=== PATIENT | female | born 1995 | race Caucasian/White ===

== ENCOUNTER 2023-12-15 13:01 | Emergency (ER) | payer OTHER ==
[2023-12-15 13:29] VITALS: TEMP 98.4
[2023-12-15] MEDS ORDERED: ALBUTEROL NEBULIZED 2.5 MG/3 ML INHALATION STA (13:29)
--- NOTE | 2023-12-15 14:06 | ED ---
General Adult HPI - General Chief complaint: Shortness of Breath Stated complaint: NICKI cough Time Seen by Provider: 12/15/23 13:16 Source: patient Mode of arrival: ambulatory Limitations: no limitations - History of Present Illness Initial comments: Patient is a 28-year-old female presented ER with chief complaint shortness of breath. Patient states last night she started having increasing shortness of breath and pressure sensation in her chest. Patient does have a history of asthma. Patient states when she laid down she felt like an elephant was sitting on her chest. Patient also is endorsing abdominal pain. She is also concerned of STDs and would like to be checked him prophylactically treated. He denies any lightheadedness, dizziness, headache, double or blurred vision, fevers, chills, peripheral edema. - Related Data Previous Rx's Medication Instructions Recorded Ciprofloxacin HCl [Cipro] 500 mg PO Q12HR 5 Days tablet 08/14/15 Albuterol Inhaler [Ventolin Hfa 1 - 2 puff INHALATION Q6H PRN #1 12/15/23 Inhaler] each Allergies Allergy/AdvReac Type Severity Reaction Status Date / Time No Known Allergies Allergy Verified 08/14/15 15:50 Review of Systems ROS Statement: Those systems with pertinent positive or pertinent negative responses have been documented in the HPI. ROS Other: All systems not noted in ROS Statement are negative. Past Medical History Past Medical History: Asthma, GERD/Reflux Additional Past Medical History / Comment(s): IBS History of Any Multi-Drug Resistant Organisms: None Reported Past Surgical History: No Surgical Hx Reported Past Psychological History: Anxiety Smoking Status: Current every day smoker Past Alcohol Use History: Rare Past Drug Use History: Marijuana General Exam Limitations: no limitations General appearance: alert, in no apparent distress Head exam: Present: atraumatic, normocephalic, normal inspection Eye exam: Present: normal appearance, PERRL, EOMI. Absent: scleral icterus, conjunctival injection, periorbital swelling ENT exam: Present: normal exam, normal oropharynx, mucous membranes moist, TM's normal bilaterally Neck exam: Present: normal inspection. Absent: tenderness, meningismus, lymphadenopathy Respiratory exam: Present: wheezes (Mild bilaterally) Cardiovascular Exam: Present: regular rate, normal rhythm, normal heart sounds. Absent: systolic murmur, diastolic murmur, rubs, gallop, clicks GI/Abdominal exam: Present: soft, normal bowel sounds. Absent: distended, tenderness, guarding, rebound, rigid External exam: Present: normal external exam Speculum exam: Present: normal speculum exam, other (mild white thin discharge) Neurological exam: Present: alert, oriented X3, CN II-XII intact Psychiatric exam: Present: normal affect, normal mood Skin exam: Present: warm, dry, intact, normal color. Absent: rash Course Vital Signs 12/15/23 12/15/23 12/15/23 13:06 15:22 15:31 Temperature 98.4 F Pulse Rate 64 57 L 60 Respiratory 16 Rate Blood Pressure 111/86 O2 Sat by Pulse 100 Oximetry - Reevaluation(s) Reevaluation #1: 12/15/23 14:47 Pelvic exam completed. Chaperoned by Lelia Souza RN Medical Decision Making - Medical Decision Making Was pt. sent in by a medical professional or institution (, PA, B[employer] TE[employer] MANAGER, urgent care, hospital, or care home...) When possible be specific @ -No Did you speak to anyone other than the patient for history (EMS, parent, family, police, friend...)? What history was obtained from this source @ -No Did you review nursing and triage notes (agree or disagree)? Why? @ -I reviewed and agree with nursing and triage notes Were old charts reviewed (outside hosp., previous admission, EMS record, old EKG, old radiological studies, urgent care reports/EKG's, care home records)? Report findings @ -No old charts were reviewed Differential Diagnosis (chest pain, altered mental status, abdominal pain women, abdominal pain men, vaginal bleeding, weakness, fever, dyspnea, syncope, headache, dizziness, GI bleed, back pain, seizure, CVA, palpatations, mental health, musculoskeletal)? @ -Differential Dyspnea:Coronary syndrome, arrhythmia, tamponade, asthma, COPD, pulmonary embolism, pneumonia, pneumothorax, pulmonary effusion, anaphylaxis, diabetic ketoacidosis, flailed chest, pulmonary contusion, diaphragmatic r upture, anemia, neuromuscular, this is not meant to be an all-inclusive list. EKG interpreted by me (3pts min.). @ -As above X-rays interpreted by me (1pt min.). @ -Chest x-ray interpreted by me shows no acute process. CT interpreted by me (1pt min.). @ -None done U/S interpreted by me (1pt. min.). @ -None done What testing was considered but not performed or refused? (CT, X-rays, U/S, labs)? Why? @ -None What meds were considered but not given or refused? Why? @ -Patient refused prophylactic STD treatment. Did you discuss the management of the patient with other professionals (professionals i.e. , PA, B[employer] TECH[employer]Y MANAGER, lab, RT, psych nurse, social science manager, middle school resource teacher, teacher, business services officer, case maker)? Give summary @ -No Was smoking cessation discussed for >3mins.? @ -I discussed smoking cessation for greater than 3 minutes. The risk of smoking were discussed with the patient including but not limited to risks of cancer, stroke, coronary artery disease and COPD. Also discussed with patient were multiple methods of quitting smoking. Lastly we discussed the financial cost of smoking. Was critical care preformed (if so, how long)? @ -No Were there social determinants of health that impacted care today? How? (Homelessness, low income, unemployed, alcoholism, drug addiction, transportation, low edu. Level, literacy, decrease access to med. care, senior care, rehab)? @ -No Was there de-escalation of care discussed even if they declined (Discuss DNR or withdrawal of care, Hospice)? DNR status @ -No What co-morbidities impacted this encounter? (DM, HTN, Smoking, COPD, CAD, Cancer, CVA, ARF, Chemo, Hep., AIDS, mental health diagnosis, sleep apnea, morbid obesity)? @ -Smoking, asthma Is patient admitted / discharged? Hospital course, mention meds given and route, prescriptions, significant lab abnormalities, going to OR and other pertinent info. @ -Discharge. Patient is a 28-year-old female presenting to the ER with chief complaint of dyspnea. Patient also is concerned for STD exposure. Vitals stable. History and physical exam were completed. Patient was in no signs of acute respiratory distress. Mild bilateral wheezing present. Patient received nebulized albuterol treatment in ER. Labs obtained in the ER were unimpressive. Covid, rsv, influenza negative. EKG without signs of acute ischemia or infarct. UA without signs of infection. Chest x-ray interpreted by me negative for acute process. Official report pending. Pelvic exam completed and chaperoned by Sherri Souza RN. Results pending. I discussed imaging and lab results with patient. I advised her to continue OTC Tylenol and Motrin for symptoms control. I also suggested she use her inhaler and nebulizer as needed for dyspnea. Prescribed albuterol inhaler. Patient refused prophylactic STD treatment. I discussed smoking cessation for greater than 3 minutes. The risk of smoking were discussed with the patient including but not limited to risks of cancer, stroke, coronary artery disease and COPD. Also discussed with patient were multiple methods of quitting smoking. Lastly we discussed the financial cost of smoking. Return parameters were discussed. I advised patient to follow-up with PCP and [facility]. Patient expressed understanding and agreement with care plan. Undiagnosed new problem with uncertain prognosis? @ -No Drug Therapy requiring intensive monitoring for toxicity (Heparin, Nitro, Insulin, Cardizem)? @ -No Were any procedures done? @ -No Diagnosis/symptom? @ -viral illness/STD exposure Acute, or Chronic, or Acute on Chronic? @ -acute Uncomplicated (without systemic symptoms) or Complicated (systemic symptoms)? @ -uncomplicated Side effects of treatment? @ -No Exacerbation, Progression, or Severe Exacerbation? @ -No Poses a threat to life or bodily function? How? (Chest pain, [place], [place], pneumonia, PE, COPD, DKA, ARF, appy, cholecystitis, CVA, Diverticulitis, Homicidal, Suicidal, threat to staff... and all critical care pts) @ -No - Lab Data Result diagrams: 12/15/23 13:53 12/15/23 13:53 Lab Results 12/15/23 12/15/23 12/15/23 Range/Units 13:53 13:53 13:53 WBC 10.8 H (3.8-10.6) k/uL RBC 4.80 (3.80-5.40) m/uL Hgb 14.5 (11.4-16.0) gm/dL Hct 43.8 (34.0-46.0) % MCV 91.3 (80.0-100.0) fL MCH 30.1 (25.0-35.0) pg MCHC 33.0 (31.0-37.0) g/dL RDW 13.0 (11.5-15.5) % Plt Count 340 (150-450) k/uL MPV 7.9 Sodium 141 (137-145) mmol/L Potassium 4.1 (3.5-5.1) mmol/L Chloride 106 (98-107) mmol/L Carbon Dioxide 25 (22-30) mmol/L Anion Gap 10 mmol/L BUN 15 (7-17) mg/dL Creatinine 0.74 (0.52-1.04) mg/dL Est GFR (CKD-EPI)AfAm >90 (>60 ml/min/1.73 sqM) Est GFR (CKD-EPI)NonAf >90 (>60 ml/min/1.73 sqM) Glucose 83 (74-99) mg/dL Calcium 9.4 (8.4-10.2) mg/dL Total Bilirubin 0.4 (0.2-1.3) mg/dL AST 19 (14-36) U/L ALT 15 (4-34) U/L Alkaline Phosphatase 89 (38-126) U/L Troponin I (0.000-0.034) ng/mL Total Protein 8.1 (6.3-8.2) g/dL Albumin 4.4 (3.5-5.0) g/dL Urine Color Light Yellow Urine Appearance Clear (Clear) Urine pH 5.5 (5.0-8.0) Ur Specific [place] 1.028 (1.001-1.035) Urine Protein Negative (Negative) Urine Glucose (UA) Negative (Negative) Urine Ketones Negative (Negative) Urine Blood Negative (Negative) Urine Nitrite Negative (Negative) Urine Bilirubin Negative (Negative) Urine Urobilinogen <2.0 (<2.0) mg/dL Ur Leukocyte Esterase Small H (Negative) Urine RBC 1 (0-5) /hpf Urine WBC 3 (0-5) /hpf Ur Squamous Epith Cells 5 H (0-4) /hpf Urine Mucus Rare H (None) /hpf Urine HCG, Qual (Not Detectd) Influenza Type A (PCR) (Not Detectd) Influenza Type B (PCR) (Not Detectd) RSV (PCR) (Not Detectd) SARS-CoV-2 (PCR) (Not Detectd) Trichomonas Ag (Rapid) (Negative) 12/15/23 12/15/23 12/15/23 Range/Units 13:53 13:53 13:53 WBC (3.8-10.6) k/uL RBC (3.80-5.40) m/uL Hgb (11.4-16.0) gm/dL Hct (34.0-46.0) % MCV (80.0-100.0) fL MCH (25.0-35.0) pg MCHC (31.0-37.0) g/dL RDW (11.5-15.5) % Plt Count (150-450) k/uL MPV Sodium (137-145) mmol/L Potassium (3.5-5.1) mmol/L Chloride (98-107) mmol/L Carbon Dioxide (22-30) mmol/L Anion Gap mmol/L BUN (7-17) mg/dL Creatinine (0.52-1.04) mg/dL Est GFR (CKD-EPI)AfAm (>60 ml/min/1.73 sqM) Est GFR (CKD-EPI)NonAf (>60 ml/min/1.73 sqM) Glucose (74-99) mg/dL Calcium (8.4-10.2) mg/dL Total Bilirubin (0.2-1.3) mg/dL AST (14-36) U/L ALT (4-34) U/L Alkaline Phosphatase (38-126) U/L Troponin I <0.012 (0.000-0.034) ng/mL Total Protein (6.3-8.2) g/dL Albumin (3.5-5.0) g/dL Urine Color Urine Appearance (Clear) Urine pH (5.0-8.0) Ur Specific [place] (1.001-1.035) Urine Protein (Negative) Urine Glucose (UA) (Negative) Urine Ketones (Negative) Urine Blood (Negative) Urine Nitrite (Negative) Urine Bilirubin (Negative) Urine Urobilinogen (<2.0) mg/dL Ur Leukocyte Esterase (Negative) Urine RBC (0-5) /hpf Urine WBC (0-5) /hpf Ur Squamous Epith Cells (0-4) /hpf Urine Mucus (None) /hpf Urine HCG, Qual Not Detected (Not Detectd) Influenza Type A (PCR) Not Detected (Not Detectd) Influenza Type B (PCR) Not Detected (Not Detectd) RSV (PCR) Not Detected (Not Detectd) SARS-CoV-2 (PCR) Not Detected (Not Detectd) Trichomonas Ag (Rapid) (Negative) 12/15/23 Range/Units 14:40 WBC (3.8-10.6) k/uL RBC (3.80-5.40) m/uL Hgb (11.4-16.0) gm/dL Hct (34.0-46.0) % MCV (80.0-100.0) fL MCH (25.0-35.0) pg MCHC (31.0-37.0) g/dL RDW (11.5-15.5) % Plt Count (150-450) k/uL MPV Sodium (137-145) mmol/L Potassium (3.5-5.1) mmol/L Chloride (98-107) mmol/L Carbon Dioxide (22-30) mmol/L Anion Gap mmol/L BUN (7-17) mg/dL Creatinine (0.52-1.04) mg/dL Est GFR (CKD-EPI)AfAm (>60 ml/min/1.73 sqM) Est GFR (CKD-EPI)NonAf (>60 ml/min/1.73 sqM) Glucose (74-99) mg/dL Calcium (8.4-10.2) mg/dL Total Bilirubin (0.2-1.3) mg/dL AST (14-36) U/L ALT (4-34) U/L Alkaline Phosphatase (38-126) U/L Troponin I (0.000-0.034) ng/mL Total Protein (6.3-8.2) g/dL Albumin (3.5-5.0) g/dL Urine Color Urine Appearance (Clear) Urine pH (5.0-8.0) Ur Specific [place] (1.001-1.035) Urine Protein (Negative) Urine Glucose (UA) (Negative) Urine Ketones (Negative) Urine Blood (Negative) Urine Nitrite (Negative) Urine Bilirubin (Negative) Urine Urobilinogen (<2.0) mg/dL Ur Leukocyte Esterase (Negative) Urine RBC (0-5) /hpf Urine WBC (0-5) /hpf Ur Squamous Epith Cells (0-4) /hpf Urine Mucus (None) /hpf Urine HCG, Qual (Not Detectd) Influenza Type A (PCR) (Not Detectd) Influenza Type B (PCR) (Not Detectd) RSV (PCR) (Not Detectd) SARS-CoV-2 (PCR) (Not Detectd) Trichomonas Ag (Rapid) Negative (Negative) - EKG Data -: EKG Interpreted by Me EKG Comments: EKG taken at 13:59 shows sinus bradycardia with no acute ST segment or T-wave abnormalities present. Ventricular rate 58, AK interval 155, QRS duration 81, QT/QTC 411/407. - Radiology Data Radiology results: image reviewed Disposition Clinical Impression: Viral illness, Exposure to STD Disposition: HOME SELF-CARE Condition: Stable Instructions (If sedation given, give patient instructions): Asthma (ED), Sexually Transmitted Diseases (ED) Additional Instructions: Please follow-up with PCP and [facility] in next 1-2 days. Return to ER for any new or worsening symptoms. Prescriptions: Albuterol Inhaler [Ventolin Hfa Inhaler] 1 - 2 puff INHALATION Q6H PRN #1 each PRN Reason: Shortness Of Breath Is patient prescribed a controlled substance at d/c from ED?: No Referrals: None,Stated [Primary Care Provider] - 1-2 days Time of Disposition: 16:01
[2023-12-15 14:27] LABS: HCT 43.8 % (34.0-46.0); HGB 14.5 gm/dL (11.4-16.0); MCH 30.1 pg (25.0-35.0); MCV 91.3 fL (80.0-100.0); Mean Platelet Volume 7.9; Platelet Count 340 k/uL (150-450); WBC 10.8 k/uL (3.8-10.6)
[2023-12-15 14:37] LABS: Appearance,Urine Clear (Clear); Bilirubin,Urine Negative (Negative); Blood,Urine Negative (Negative); Color,Urine Light Yellow; Glucose,Urine (UA) Negative (Negative); Ketones,Urine Negative (Negative); Leukocyte Esterase,Urine Small (Negative); Mucus,Urine Rare /hpf; Nitrite,Urine Negative (Negative); PH, Urine 5.5 (5.0-8.0); Protein,Urine Negative (Negative); RBC,Urine 1 /hpf (0-5); Specific Gravity,Urine 1.028 (1.001-1.035); Squamous Epithelial Cell,Urine 5 /hpf (0-4); Urobilinogen,Urine <2.0 mg/dL (<2.0); WBC,Urine 3 /hpf (0-5)
[2023-12-15 14:46] LABS: ALT 15 U/L (4-34); AST 19 U/L (14-36); African American GFR (CKD) >90 (>60 ml/min/1.73 sqM); Albumin 4.4 g/dL (3.5-5.0); Alkaline Phosphatase 89 U/L (38-126); Anion Gap 10 mmol/L; Blood Urea Nitrogen 15 mg/dL (7-17); Calcium 9.4 mg/dL (8.4-10.2); Carbon Dioxide 25 mmol/L (22-30); Chloride 106 mmol/L (98-107); Glucose 83 mg/dL (74-99); Non-African American GFR(CKD) >90 (>60 ml/min/1.73 sqM); Potassium 4.1 mmol/L (3.5-5.1); Sodium 141 mmol/L (137-145); Total Bilirubin 0.4 mg/dL (0.2-1.3); Total Protein 8.1 g/dL (6.3-8.2)
[2023-12-15 16:52] VITALS: BP 123/72; PULSE 62; RESP 18
--- NOTE | 2023-12-15 17:04 | XR ---
EXAMINATION TYPE: XR chest 2V DATE OF EXAM: 12/15/2023 3:17 PM CLINICAL INDICATION:Female, 28 years old with history of cough; [facility] COMPARISON: None TECHNIQUE: XR chest 2V. Frontal and lateral views of the chest.. FINDINGS: Lines/Tubes/Devices: No indwelling lines are seen. Heart/mediastinum: Heart size is normal. Mediastinum appears normal. Pulmonary vascularity: Not increased, Lungs/Pleura: There is no evidence of pleural effusion, focal consolidation, or pneumothorax. Musculoskeletal: No acute osseous abnormality demonstrated in the limits of the exam. Other findings: None. IMPRESSION: No acute cardiopulmonary abnormality.
[2023-12-16 14:15] LABS: C. trachomatis,PCR Positive (Negative)
[2023-12-16 14:38] LABS: N. gonorrhoeae,PCR Negative (Negative)
== END 2023-12-15 16:52 | disposition home or self-care (01) ==
LOC: EC 13:01
DX: B34.9 Viral infection, unspecified (principal); Z20.2 Contact with and (suspected) exposure to infections with a predominantly sexual mode of transmission; R00.1 Bradycardia, unspecified; J45.909 Unspecified asthma, uncomplicated; F17.210 Nicotine dependence, cigarettes, uncomplicated; F12.90 Cannabis use, unspecified, uncomplicated; Z20.822 Contact with and (suspected) exposure to COVID-19
CPT/HCPCS: 36415; 71046; 80053; 81001; 81025; 84484; 85027; 86780; 87491; 87591; 87636; 87808; 87901; 93005; 94640; 99285; 99406

== ENCOUNTER 2023-12-29 15:49 | Emergency (ER) | payer OTHER ==
--- NOTE | 2023-12-29 17:01 | ED ---
Back Pain HPI - General Chief Complaint: Back Pain/Injury Stated Complaint: Low back pain Time Seen by Provider: 12/29/23 16:16 Source: patient Limitations: no limitations - History of Present Illness Initial Comments: 28-year-old female presenting to the ED with multiple complaints. Patient states 3 days ago onset of headache with some associated nausea. States that it is inconsistent with her history of headaches and currently states that it is a 10 out of 10 in severity. Patient also notes decreased appetite for the past week as well. Patient states she has a history of chronic back pain notes that today woke up with pain in the middle of her lower back which was worse than usual. No injury or trauma. Denies any incontinence or saddle anesthesia. Patient also notes some congestion and shortness of breath as well. Patient states that she thinks she might be withdrawing from alcohol as she normally drinks 3 seltzers on the weekdays however has a "gallon" of alcohol. on the weekends. Patient notes that she was treated for chlamydia last week and states that she has just finished antibiotics. Patient states she is also having some abdominal pain. Denies vaginal discharge. No changes in bowel or bladder habits. No history of DTs. No other complaints at this time. - Related Data Previous Rx's Medication Instructions Recorded Ciprofloxacin HCl [Cipro] 500 mg PO Q12HR 5 Days tablet 08/14/15 Albuterol Inhaler [Ventolin Hfa 1 - 2 puff INHALATION Q6H PRN #1 12/15/23 Inhaler] each Allergies Allergy/AdvReac Type Severity Reaction Status Date / Time No Known Allergies Allergy Verified 12/29/23 15:59 Review of Systems ROS Statement: Those systems with pertinent positive or pertinent negative responses have been documented in the HPI. ROS Other: All systems not noted in ROS Statement are negative. Past Medical History Past Medical History: Asthma, GERD/Reflux Additional Past Medical History / Comment(s): IBS History of Any Multi-Drug Resistant Organisms: None Reported Past Surgical History: No Surgical Hx Reported Past Psychological History: Anxiety Smoking Status: Current every day smoker Past Alcohol Use History: Rare Past Drug Use History: Marijuana General Exam Limitations: no limitations Course Vital Signs 12/29/23 12/29/23 12/29/23 15:54 17:59 19:01 Temperature 98.3 F Pulse Rate 84 67 84 Respiratory 18 18 18 Rate Blood Pressure 146/66 119/78 101/49 O2 Sat by Pulse 100 94 L 98 Oximetry Medical Decision Making - Medical Decision Making Was pt. sent in by a medical professional or institution (, PA, QUALITY SUPERVISOR, urgent care, hospital, or skilled nursing...) When possible be specific @ -No Did you speak to anyone other than the patient for history (EMS, parent, family, police, friend...)? What history was obtained from this source @ -No Did you review nursing and triage notes (agree or disagree)? Why? @ -I reviewed and agree with nursing and triage notes Were old charts reviewed (outside hosp., previous admission, EMS record, old EKG, old radiological studies, urgent care reports/EKG's, skilled nursing records)? Report findings @ -No old charts were reviewed Differential Diagnosis (chest pain, altered mental status, abdominal pain women, abdominal pain men, vaginal bleeding, weakness, fever, dyspnea, syncope, headache, dizziness, GI bleed, back pain, seizure, CVA, palpatations, mental health, musculoskeletal)? @ -Differential Headache: Migraine, tension, cluster, carbon monoxide, central venous thrombosis, pension karma temporal arteritis, acute closure glaucoma, intercranial hemorrhage, mastoiditis, sinusitis, head injury, this is not meant to be an all-inclusive list. Differential Back Pain: Strain, zoster, cauda equina syndrome, epidural abscess, vertebral os teomyelitis, discitis, fracture, subluxation, disc herniation, DJD, spinal stenosis, dissection, AAA, pancreatitis, peptic ulcer disease, pyelonephritis, kidney stone, this is not meant to be an all-inclusive list. EKG interpreted by me (3pts min.). @ -As above X-rays interpreted by me (1pt min.). @ -X-ray of the lumbar spine and chest interpreted as showing no evidence of acute findings. CT interpreted by me (1pt min.). @ -CT of the brain interpreted me showing no evidence of acute finding. U/S interpreted by me (1pt. min.). @ -None done What testing was considered but not performed or refused? (CT, X-rays, U/S, labs)? Why? @ -None What meds were considered but not given or refused? Why? @ -None Did you discuss the management of the patient with other professionals (professionals i.e. , PA, QUALITY SUPERVISOR, lab, RT, psych nurse, medical social worker, plastics worker, teacher, vessel traffic officer, case folder)? Give summary @ -No Was smoking cessation discussed for >3mins.? @ -No Was critical care preformed (if so, how long)? @ -No Were there social determinants of health that impacted care today? How? (Homelessness, low income, unemployed, alcoholism, drug addiction, transportation, low edu. Level, literacy, decrease access to med. care, custodial, rehab)? @ -No Was there de-escalation of care discussed even if they declined (Discuss DNR or withdrawal of care, Hospice)? DNR status @ -No What co-morbidities impacted this encounter? (DM, HTN, Smoking, COPD, CAD, Cancer, CVA, ARF, Chemo, Hep., AIDS, mental health diagnosis, sleep apnea, m orbid obesity)? @ -None Was patient admitted / discharged? Hospital course, mention meds given and route, prescriptions, significant lab abnormalities, going to OR and other pertinent info. @ -Discharge 28-year-old female presenting with multiple complaints, primarily headache, nausea, vomiting, and back pain. Laboratory studies reviewed. At this time white blood cell count is elevated at 11.4 however patient does note that she has had some nausea and vomiting over the past few days. D-dimer here negative. Coagulation panel unremarkable. Chemistry panel does show an elevated BUN at 21 likely some slight dehydration, otherwise unremarkable. Amylase lipase unre markable. Troponin less than 0.012. UA has no significant evidence of infection. Toxicology screen only positive for THC which patient does admit to using. No other drugs found on here. Serology panel unremarkable. Discussed results with patient. At this time has received Toradol, Tylenol, magnesium, diphenhydramine. Offered steroids however patient would not like to have any of these at this time. Otherwise vital signs at this time stable afebrile. Patient discharged home in stable condition and advised to follow-up with her primary care provider. Discussed return precautions with patient who verbalized agreement. Undiagnosed new problem with uncertain prognosis? @ -No Drug Therapy requiring intensive monitoring for toxicity (Heparin, Nitro, Insulin, Cardizem)? @ -No Were any procedures done? @ -No Diagnosis/symptom? @ -Headache, back pain Acute, or Chronic, or Acute on Chronic? @ -Acute Uncomplicated (without systemic symptoms) or Complicated (systemic symptoms)? @ -Uncomplicated Side effects of treatment? @ -No Exacerbation, Progression, or Severe Exacerbation? @ -No Poses a threat to life or bodily function? How? (Chest pain, [place], ME, pneumonia, PE, COPD, DKA, ARF, appy, cholecystitis, CVA, Diverticulitis, Homicidal, Suicidal, threat to staff... and all critical care pts) @ -No - Lab Data Result diagrams: 12/29/23 17:24 12/29/23 17:24 Lab Results 12/29/23 12/29/23 12/29/23 Range/Units 16:42 17:24 17:24 WBC 11.4 H (3.8-10.6) k/uL RBC 4.96 (3.80-5.40) m/uL Hgb 15.0 (11.4-16.0) gm/dL Hct 45.1 (34.0-46.0) % MCV 90.9 (80.0-100.0) fL MCH 30.1 (25.0-35.0) pg MCHC 33.2 (31.0-37.0) g/dL RDW 13.2 (11.5-15.5) % Plt Count 300 (150-450) k/uL MPV 7.8 Neutrophils % 58 % Lymphocytes % 35 % Monocytes % 3 % Eosinophils % 2 % Basophils % 1 % Neutrophils # 6.6 (1.3-7.7) k/uL Lymphocytes # 4.0 (1.0-4.8) k/uL Monocytes # 0.3 (0-1.0) k/uL Eosinophils # 0.2 (0-0.7) k/uL Basophils # 0.1 (0-0.2) k/uL PT 10.9 (10.0-12.5) sec INR 1.0 (<1.2) APTT 26.7 (22.0-30.0) sec D-Dimer 0.30 (<0.60) mg/L FEU Sodium (137-145) mmol/L Potassium (3.5-5.1) mmol/L Chloride (98-107) mmol/L Carbon Dioxide (22-30) mmol/L Anion Gap mmol/L BUN (7-17) mg/dL Creatinine (0.52-1.04) mg/dL Est GFR (CKD-EPI)AfAm (>60 ml/min/1.73 sqM) Est GFR (CKD-EPI)NonAf (>60 ml/min/1.73 sqM) Glucose (74-99) mg/dL Calcium (8.4-10.2) mg/dL Magnesium (1.6-2.3) mg/dL Total Bilirubin (0.2-1.3) mg/dL AST (14-36) U/L ALT (4-34) U/L Alkaline Phosphatase (38-126) U/L Troponin I (0.000-0.034) ng/mL Total Protein (6.3-8.2) g/dL Albumin (3.5-5.0) g/dL Amylase (30-110) U/L Lipase (23-300) U/L Urine Color Urine Appearance (Clear) Urine pH (5.0-8.0) Ur Specific [place] (1.001-1.035) Urine Protein (Negative) Urine Glucose (UA) (Negative) Urine Ketones (Negative) Urine Blood (Negative) Urine Nitrite (Negative) Urine Bilirubin (Negative) Urine Urobilinogen (<2.0) mg/dL Ur Leukocyte Esterase (Negative) Urine RBC (0-5) /hpf Urine WBC (0-5) /hpf Ur Squamous Epith Cells (0-4) /hpf Urine Mucus (None) /hpf Urine HCG, Qual (Not Detectd) Urine Opiates Screen (NotDetected) Ur Oxycodone Screen (NotDetected) Urine Methadone Screen (NotDetected) Ur Barbiturates Screen (NotDetected) U Tricyclic Antidepress (NotDetected) Ur Phencyclidine Scrn (NotDetected) Ur Amphetamines Screen (NotDetected) U Methamphetamines Scrn (NotDetected) U Benzodiazepines Scrn (NotDetected) Urine Cocaine Screen (NotDetected) U Marijuana (THC) Screen (NotDetected) Serum Alcohol mg/dL Influenza Type A (PCR) Not Detected (Not Detectd) Influenza Type B (PCR) Not Detected (Not Detectd) RSV (PCR) Not Detected (Not Detectd) SARS-CoV-2 (PCR) Not Detected (Not Detectd) 12/29/23 12/29/23 12/29/23 Range/Units 17:24 17:24 17:24 WBC (3.8-10.6) k/uL RBC (3.80-5.40) m/uL Hgb (11.4-16.0) gm/dL Hct (34.0-46.0) % MCV (80.0-100.0) fL MCH (25.0-35.0) pg MCHC (31.0-37.0) g/dL RDW (11.5-15.5) % Plt Count (150-450) k/uL MPV Neutrophils % % Lymphocytes % % Monocytes % % Eosinophils % % Basophils % % Neutrophils # (1.3-7.7) k/uL Lymphocytes # (1.0-4.8) k/uL Monocytes # (0-1.0) k/uL Eosinophils # (0-0.7) k/uL Basophils # (0-0.2) k/uL PT (10.0-12.5) sec INR (<1.2) APTT (22.0-30.0) sec D-Dimer (<0.60) mg/L FEU Sodium 139 (137-145) mmol/L Potassium 4.1 (3.5-5.1) mmol/L Chloride 105 (98-107) mmol/L Carbon Dioxide 23 (22-30) mmol/L Anion Gap 11 mmol/L BUN 21 H (7-17) mg/dL Creatinine 0.77 (0.52-1.04) mg/dL Est GFR (CKD-EPI)AfAm >90 (>60 ml/min/1.73 sqM) Est GFR (CKD-EPI)NonAf >90 (>60 ml/min/1.73 sqM) Glucose 74 (74-99) mg/dL Calcium 9.5 (8.4-10.2) mg/dL Magnesium 1.8 (1.6-2.3) mg/dL Total Bilirubin 0.9 (0.2-1.3) mg/dL AST 26 (14-36) U/L ALT 21 (4-34) U/L Alkaline Phosphatase 90 (38-126) U/L Troponin I <0.012 (0.000-0.034) ng/mL Total Protein 8.1 (6.3-8.2) g/dL Albumin 4.5 (3.5-5.0) g/dL Amylase 54 (30-110) U/L Lipase 49 (23-300) U/L Urine Color Yellow Urine Appearance Cloudy H (Clear) Urine pH 5.5 (5.0-8.0) Ur Specific [place] 1.042 H (1.001-1.035) Urine Protein Trace H (Negative) Urine Glucose (UA) Negative (Negative) Urine Ketones 1+ H (Negative) Urine Blood Negative (Negative) Urine Nitrite Negative (Negative) Urine Bilirubin Negative (Negative) Urine Urobilinogen <2.0 (<2.0) mg/dL Ur Leukocyte Esterase Moderate H (Negative) Urine RBC 2 (0-5) /hpf Urine WBC 7 H (0-5) /hpf Ur Squamous Epith Cells 10 H (0-4) /hpf Urine Mucus Few H (None) /hpf Urine HCG, Qual (Not Detectd) Urine Opiates Screen (NotDetected) Ur Oxycodone Screen (NotDetected) Urine Methadone Screen (NotDetected) Ur Barbiturates Screen (NotDetected) U Tricyclic Antidepress (NotDetected) Ur Phencyclidine Scrn (NotDetected) Ur Amphetamines Screen (NotDetected) U Methamphetamines Scrn (NotDetected) U Benzodiazepines Scrn (NotDetected) Urine Cocaine Screen (NotDetected) U Marijuana (THC) Screen (NotDetected) Serum Alcohol <10 mg/dL Influenza Type A (PCR) (Not Detectd) Influenza Type B (PCR) (Not Detectd) RSV (PCR) (Not Detectd) SARS-CoV-2 (PCR) (Not Detectd) 12/29/23 12/29/23 Range/Units 17:24 17:24 WBC (3.8-10.6) k/uL RBC (3.80-5.40) m/uL Hgb (11.4-16.0) gm/dL Hct (34.0-46.0) % MCV (80.0-100.0) fL MCH (25.0-35.0) pg MCHC (31.0-37.0) g/dL RDW (11.5-15.5) % Plt Count (150-450) k/uL MPV Neutrophils % % Lymphocytes % % Monocytes % % Eosinophils % % Basophils % % Neutrophils # (1.3-7.7) k/uL Lymphocytes # (1.0-4.8) k/uL Monocytes # (0-1.0) k/uL Eosinophils # (0-0.7) k/uL Basophils # (0-0.2) k/uL PT (10.0-12.5) sec INR (<1.2) APTT (22.0-30.0) sec D-Dimer (<0.60) mg/L FEU Sodium (137-145) mmol/L Potassium (3.5-5.1) mmol/L Chloride (98-107) mmol/L Carbon Dioxide (22-30) mmol/L Anion Gap mmol/L BUN (7-17) mg/dL Creatinine (0.52-1.04) mg/dL Est GFR (CKD-EPI)AfAm (>60 ml/min/1.73 sqM) Est GFR (CKD-EPI)NonAf (>60 ml/min/1.73 sqM) Glucose (74-99) mg/dL Calcium (8.4-10.2) mg/dL Magnesium (1.6-2.3) mg/dL Total Bilirubin (0.2-1.3) mg/dL AST (14-36) U/L ALT (4-34) U/L Alkaline Phosphatase (38-126) U/L Troponin I (0.000-0.034) ng/mL Total Protein (6.3-8.2) g/dL Albumin (3.5-5.0) g/dL Amylase (30-110) U/L Lipase (23-300) U/L Urine Color Urine Appearance (Clear) Urine pH (5.0-8.0) Ur Specific [place] (1.001-1.035) Urine Protein (Negative) Urine Glucose (UA) (Negative) Urine Ketones (Negative) Urine Blood (Negative) Urine Nitrite (Negative) Urine Bilirubin (Negative) Urine Urobilinogen (<2.0) mg/dL Ur Leukocyte Esterase (Negative) Urine RBC (0-5) /hpf Urine WBC (0-5) /hpf Ur Squamous Epith Cells (0-4) /hpf Urine Mucus (None) /hpf Urine HCG, Qual Not Detected (Not Detectd) Urine Opiates Screen Not Detected (NotDetected) Ur Oxycodone Screen Not Detected (NotDetected) Urine Methadone Screen Not Detected (NotDetected) Ur Barbiturates Screen Not Detected (NotDetected) U Tricyclic Antidepress Not Detected (NotDetected) Ur Phencyclidine Scrn Not Detected (NotDetected) Ur Amphetamines Screen Not Detected (NotDetected) U Methamphetamines Scrn Not Detected (NotDetected) U Benzodiazepines Scrn Not Detected (NotDetected) Urine Cocaine Screen Not Detected (NotDetected) U Marijuana (THC) Screen Detected H (NotDetected) Serum Alcohol mg/dL Influenza Type A (PCR) (Not Detectd) Influenza Type B (PCR) (Not Detectd) RSV (PCR) (Not Detectd) SARS-CoV-2 (PCR) (Not Detectd) - EKG Data EKG Comments: EKG shows a normal sinus rhythm at [address] or T wave changes. [place] 152, QRS 90, QT/QTc 389/399. Disposition Clinical Impression: Headache, Back pain Disposition: HOME SELF-CARE Condition: Good Additional Instructions: Please return to the Emergency Department if symptoms worsen or any other concerns. Please follow-up with your primary care provider Is patient prescribed a controlled substance at d/c from ED?: No Referrals: None,Stated [Primary Care Provider] - 1-2 days Time of Disposition: 20:31
[2023-12-29] MEDS ORDERED: ONDANSETRON 4 MG/2 ML VIAL IVP STA (17:03)
[2023-12-29] MEDS ORDERED: SODIUM CHLORIDE 0.9% 500 ML 500 ML IV STA (17:03)
[2023-12-29] MEDS ORDERED: KETOROLAC 15 MG/ML 1 ML VIAL IVP STA (17:04)
--- NOTE | 2023-12-29 18:18 | CT ---
EXAMINATION TYPE: CT brain wo con CT DLP: 1052 mGycm, Automated exposure control for dose reduction was used. DATE OF EXAM: 12/29/2023 6:10 PM COMPARISON: None. CLINICAL INDICATION:Female, 28 years old with history of LIVE, headache TECHNIQUE: Brain: Axial CT images of the brain were obtained with coronal and sagittal reformats created and rev iewed. Contrast used: None. Oral contrast used: None. FINDINGS: Extra-axial spaces: No abnormal extra-axial fluid collections. Ventricular system: Within normal limits. Cerebral parenchyma: No increased attenuation to suggest acute intraparenchymal hemorrhage. The gra y-white matter interface appears maintained. No significant atrophy. White matter unremarkable by C T. Cerebellum: No acute abnormality. Mass effect: No evidence of mass effect or midline shift. Intracranial vasculature: Unremarkable Soft tissues: No acute or concerning abnormality. Visualized orbits: Orbital contents appear grossly intact. Calvarium/osseous structures: No evidence of calvarial fracture. Paranasal sinuses and mastoid air cells: Clear. MRI is more sensitive for detecting acute processes such as infarct, and may be considered if clinica lly warranted. IMPRESSION: No acute intracranial CT abnormality.
[2023-12-29 18:21] LABS: Appearance,Urine Cloudy (Clear); Bilirubin,Urine Negative (Negative); Blood,Urine Negative (Negative); Color,Urine Yellow; Glucose,Urine (UA) Negative (Negative); Ketones,Urine 1+ (Negative); Leukocyte Esterase,Urine Moderate (Negative); Mucus,Urine Few /hpf; Nitrite,Urine Negative (Negative); PH, Urine 5.5 (5.0-8.0); Protein,Urine Trace (Negative); RBC,Urine 2 /hpf (0-5); Specific Gravity,Urine 1.042 (1.001-1.035); Squamous Epithelial Cell,Urine 10 /hpf (0-4); Urobilinogen,Urine <2.0 mg/dL (<2.0); WBC,Urine 7 /hpf (0-5)
--- NOTE | 2023-12-29 18:23 | XR ---
EXAMINATION TYPE: XR chest 2V DATE OF EXAM: 12/29/2023 6:17 PM CLINICAL INDICATION:Female, 28 years old with history of dyspnea; [facility] COMPARISON: 12/15/2023 TECHNIQUE: XR chest 2V. Frontal and lateral views of the chest.. FINDINGS: Lines/Tubes/Devices: No indwelling lines are seen. Heart/mediastinum: Heart size is normal. Mediastinum appears normal. Pulmonary vascularity: Not increased, Lungs/Pleura: Hazy opacity over the lung bases on the frontal view likely from overlying soft tissue attenuation. There is no evidence of pleural effusion, focal consolidation, or pneumothorax. Musculoskeletal: No acute osseous abnormality demonstrated in the limits of the exam. Other findings: None. IMPRESSION: No acute findings, or significant interval change.
[2023-12-29] MEDS ORDERED: diphenhydrAMINE 50 MG/ML 1 ML VIAL IVP STA (18:26)
--- NOTE | 2023-12-29 18:33 | XR ---
EXAMINATION TYPE: XR lumbar spine 2 or 3V DATE OF EXAM: 12/29/2023 6:17 PM CLINICAL INDICATION:Female, 28 years old with history of pain; [facility] COMPARISON: None TECHNIQUE: XR lumbar spine 2 or 3V - Frontal, lateral and coned down L5-S1 lateral views of the lumba r spine. FINDINGS: There are 5 lumbar-type vertebral bodies. Mineralization appears within normal limits. No osseous constance tructive process seen. Vertebral body heights and disc spacing are preserved. There is normal alignme nt of the lumbar vertebral bodies. No significant degenerative changes throughout the spine. Scattered intermediate radiodensities in the abdomen appear to represent stool contents in the colon. Otherwise unremarkable soft tissues. IMPRESSION: No radiographic evidence of acute compression fracture.
[2023-12-29 18:59] LABS: Basophils # (A) 0.1 k/uL (0-0.2); Basophils % (A) 1 %; Eosinophils # (A) 0.2 k/uL (0-0.7); Eosinophils % (A) 2 %; HCT 45.1 % (34.0-46.0); Lymphocytes % (A) 35 %; MCH 30.1 pg (25.0-35.0); MCHC 33.2 g/dL (31.0-37.0); MCV 90.9 fL (80.0-100.0); Mean Platelet Volume 7.8; Monocytes # (A) 0.3 k/uL (0-1.0); Monocytes % (A) 3 %; Neutrophils # (A) 6.6 k/uL (1.3-7.7); Neutrophils % (A) 58 %; Platelet Count 300 k/uL (150-450); RBC 4.96 m/uL (3.80-5.40); RDW 13.2 % (11.5-15.5); WBC 11.4 k/uL (3.8-10.6)
[2023-12-29 19:09] LABS: ALT 21 U/L (4-34); AST 26 U/L (14-36); African American GFR (CKD) >90 (>60 ml/min/1.73 sqM); Albumin 4.5 g/dL (3.5-5.0); Alcohol <10 mg/dL; Alkaline Phosphatase 90 U/L (38-126); Amylase 54 U/L (30-110); Anion Gap 11 mmol/L; Blood Urea Nitrogen 21 mg/dL (7-17); Calcium 9.5 mg/dL (8.4-10.2); Carbon Dioxide 23 mmol/L (22-30); Chloride 105 mmol/L (98-107); Glucose 74 mg/dL (74-99); Lipase 49 U/L (23-300); Magnesium 1.8 mg/dL (1.6-2.3); Non-African American GFR(CKD) >90 (>60 ml/min/1.73 sqM); Potassium 4.1 mmol/L (3.5-5.1); Sodium 139 mmol/L (137-145); Total Bilirubin 0.9 mg/dL (0.2-1.3); Total Protein 8.1 g/dL (6.3-8.2)
[2023-12-29 19:15] LABS: Partial Thromboplastin Time 26.7 sec (22.0-30.0); Prothrombin Time 10.9 sec (10.0-12.5)
[2023-12-29] MEDS ORDERED: MAGNESIUM OXIDE 400 MG TAB PO STA (19:31)
[2023-12-29 19:57] LABS: Amphetamine Screen,Urine Not Detected (NotDetected); Barbiturate Screen,Urine Not Detected (NotDetected); Benzodiazepines Screen,Urine Not Detected (NotDetected); Cocaine Screen,Urine Not Detected (NotDetected); Methadone Screen, Urine Not Detected (NotDetected); Opiate Screen,Urine Not Detected (NotDetected); Oxycodone Screen, Urine Not Detected (NotDetected); Phencyclidine Screen,Urine Not Detected (NotDetected); Tricyclic Antidepressant,Urine Not Detected (NotDetected); Urn Cannabinoid Scrn Detected (NotDetected)
[2023-12-29 20:53] VITALS: BP 104/64; PULSE 69; RESP 12; TEMP 98
== END 2023-12-29 20:45 | disposition home or self-care (01) ==
LOC: EC 15:49
DX: M54.9 Dorsalgia, unspecified (principal); R51.9 Headache, unspecified; J45.909 Unspecified asthma, uncomplicated; F17.200 Nicotine dependence, unspecified, uncomplicated; F12.90 Cannabis use, unspecified, uncomplicated; Z86.59 Personal history of other mental and behavioral disorders; Z20.822 Contact with and (suspected) exposure to COVID-19
CPT/HCPCS: 99285; 96374; 96375; 96361 ×2; 36415; 93005; 85379; 80053; 82150; 83690; 83735; 84484; 85025; 85610; 85730; 81001; 81025; 80306; 87636; 72100; 71046; 70450; G0480; J1200; J1885; 80320

== ENCOUNTER 2024-10-08 10:57 | Inpatient (IN) | payer MEDICAID, OTHER ==
--- NOTE | 2024-10-08 11:42 | ED ---
Psych HPI - General Chief Complaint: Psychiatric Symptoms Stated Complaint: mental health Time Seen by Provider: 10/08/24 11:14 Source: patient, EMS, RN notes reviewed Mode of arrival: EMS Limitations: no limitations - History of Present Illness Initial Comments: This is a 29-year-old female with psychiatric history including BPD presenting for attempted medication overdose this morning. Patient states she took around 15 tablets of 100 mg trazodone this morning one after another before calling EMS when she grew fearful. Patient states she feels more tired than usual with associated nausea and vomiting but otherwise denies any other symptoms. Denies use or attempted overdose with any other medications. Patient states this is her first attempt at suicide using pills/drugs. Patient endorses past attempt of choking herself during elementary school and strong consider duration of walking into traffic in 2021 but was stopped before she attempted. Patient states she sees a therapist twice monthly but does not take psychiatric medication due to her BPD according to her. Patient states her next therapist appointment is on October 14. Endorses marijuana use, having run out 3 days ago. Patient states she is "overwhelmed" with life. MD Complaint: suicidal ideation, feels depressed Onset/Timin -: hour(s) Associated Psychiatric Symptoms: depression, suicidal ideation Context: recent drug abuse, not taking psychiatric medications, significant life stressor Associated Symptoms: nausea, vomiting Treatments Prior to Arrival: none If Self Harm: admits thoughts of self harm, has acted on plan, intentional overdose - Related Data Home Medications Medication Instructions Recorded Confirmed traZODone HCL [Desyrel] 100 mg PO HS PRN 10/08/24 10/08/24 Allergies Allergy/AdvReac Type Severity Reaction Status Date / Time No Known Allergies Allergy Verified 10/08/24 12:39 Review of Systems ROS Statement: Those systems with pertinent positive or pertinent negative responses have been documented in the HPI. ROS Other: All systems not noted in ROS Statement are negative. Past Medical History Past Medical History: Asthma, GERD/Reflux Additional Past Medical History / Comment(s): IBS History of Any Multi-Drug Resistant Organisms: None Reported Past Surgical History: No Surgical Hx Reported Past Psychological History: Anxiety Smoking Status: Current every day smoker Past Alcohol Use History: Rare Past Drug Use History: Marijuana General Exam Limitations: no limitations General appearance: alert, in no apparent distress, lethargic Head exam: Present: atraumatic, normocephalic, normal inspection Eye exam: Present: normal appearance, PERRL, EOMI. Absent: scleral icterus, conjunctival injection, periorbital swelling Pupils: Present: other (Slow accommodation but equal) ENT exam: Present: normal exam, mucous membranes moist Neck exam: Present: normal inspection. Absent: tenderness, meningismus, lymphadenopathy Respiratory exam: Present: normal lung sounds bilaterally. Absent: respiratory distress, wheezes, rales, rhonchi, stridor Cardiovascular Exam: Present: regular rate, normal rhythm, normal heart sounds. Absent: systolic murmur, diastolic murmur, rubs, gallop, clicks GI/Abdominal exam: Present: soft, normal bowel sounds. Absent: distended, tenderness, guarding, rebound, rigid Extremities exam: Present: normal inspection, full ROM, normal capillary refill. Absent: tenderness, pedal edema, joint swelling, calf tenderness Back exam: Present: normal inspection Neurological exam: Present: alert, oriented X3, CN II-XII intact Psychiatric exam: Present: normal affect, normal mood Skin exam: Present: warm, dry, intact, normal color. Absent: rash Course Vital Signs 10/08/24 10/08/24 11:04 18:44 Temperature 98.2 F Pulse Rate 78 82 Respiratory 12 18 Rate Blood Pressure 104/70 110/70 O2 Sat by Pulse 95 96 Oximetry Medical Decision Making - Medical Decision Making Was pt. sent in by a medical professional or institution (, PA, NATIONAL STORMWATER LEADER, urgent care, hospital, or longterm...) When possible be specific @ -No Did you speak to anyone other than the patient for history (EMS, parent, family, police, friend...)? What history was obtained from this source @ -No Did you review nursing and triage notes (agree or disagree)? Why? @ -I reviewed and agree with nursing and triage notes Were old charts reviewed (outside hosp., previous admission, EMS record, old EKG, old radiological studies, urgent care reports/EKG's, longterm records)? Report findings @ -No old charts were reviewed Differential Diagnosis (chest pain, altered mental status, abdominal pain women, abdominal pain men, vaginal bleeding, weakness, fever, dyspnea, syncope, headache, dizziness, GI bleed, back pain, seizure, CVA, palpatations, mental health, musculoskeletal)? @ -Differential Altered Mental Status: Hypoglycemia, DKA, hypercapnia, ETOH, overdose, CO poisoning, trauma, myxedema coma, HTN encephalopathy, infection, encephalitis, psychosis, intercranial he morrhage, hepatic encephalopathy, meningitis, CVA, this is not meant to be an all-inclusive list EKG interpreted by me (3pts min.). @ -Sinus rhythm without ST changes or T wave inversion. Ventricular rate 72 bpm, YAYA 130 ms, QRS duration 77 ms, QTc 418 ms. X-rays interpreted by me (1pt min.). @ -None done CT interpreted by me (1pt min.). @ -None done U/S interpreted by me (1pt. min.). @ -None done What testing was considered but not performed or refused? (CT, X-rays, U/S, labs)? Why? @ -None What meds were considered but not given or refused? Why? @ -None Did you discuss the management of the patient with other professionals (professionals i.e. , PA, N[employer] ST[employer] LEADER, lab, RT, psych nurse, licensed clinical social worker, head of digital advertising & integration, teacher, aoc director combat operations officer, therapeutic case manager)? Give summary @ -No Was smoking cessation discussed for >3mins.? @ -No Was critical care preformed (if so, how long)? @ -No Were there social determinants of health that impacted care today? How? (Homelessness, low income, unemployed, alcoholism, drug addiction, transportation, low edu. Level, literacy, decrease access to med. care, [facility], rehab)? @ -No Was there de-escalation of care discussed even if they declined (Discuss DNR or withdrawal of care, Hospice)? DNR status @ -No What co-morbidities impacted this encounter? (DM, HTN, Smoking, COPD, CAD, Cancer, CVA, ARF, Chemo, Hep., AIDS, mental health diagnosis, sleep apnea, morbid obesity)? @ -Mental health diagnosis, BPD Was patient admitted / discharged? Hospital course, mention meds given and route, prescriptions, significant lab abnormalities, going to OR and other pertinent info. @ -Admitted. Drug screen positive for marijuana use but otherwise unremarkable. Salicylate and acetaminophen were negative. Research performed regarding trazodone and common effects as well as morbidity and mortality rates. Due to patient being A&O x 4 and GCS of 15, poison control was not contacted and patient was observed instead. Decision made to admit patient due to overdose attempt and for further observation. Undiagnosed new problem with uncertain prognosis? @ -No Drug Therapy requiring intensive monitoring for toxicity (Heparin, Nitro, Insulin, Cardizem)? @ -No Were any procedures done? @ -No Diagnosis/symptom? @ -Intentional prescription drug overdose Acute, or Chronic, or Acute on Chronic? @ -Acute Uncomplicated (without systemic symptoms) or Complicated (systemic symptoms)? @ -Complicated Side effects of treatment? @ -No Exacerbation, Progression, or Severe Exacerbation? @ -No Poses a threat to life or bodily function? How? (Chest pain, USA, ND, pneumonia, PE, COPD, DKA, ARF, appy, cholecystitis, CVA, Diverticulitis, Homicidal, Suicidal, threat to staff... and all critical care pts) @ -Suicidal, drug overdose - Lab Data Result diagrams: 10/08/24 12:11 10/08/24 12:11 Lab Results 10/08/24 10/08/24 10/08/24 Range/Units 11:12 12:11 12:11 WBC 8.9 (3.8-10.6) k/uL RBC 4.92 (3.80-5.40) m/uL Hgb 14.7 (11.4-16.0) gm/dL Hct 44.9 (34.0-46.0) % MCV 91.1 (80.0-100.0) fL MCH 29.9 (25.0-35.0) pg MCHC 32.8 (31.0-37.0) g/dL RDW 12.7 (11.5-15.5) % Plt Count 273 (150-450) k/uL MPV 7.4 Neutrophils % 78 % Lymphocytes % 16 % Monocytes % 3 % Eosinophils % 2 % Basophils % 0 % Neutrophils # 6.9 (1.3-7.7) k/uL Lymphocytes # 1.4 (1.0-4.8) k/uL Monocytes # 0.3 (0-1.0) k/uL Eosinophils # 0.2 (0-0.7) k/uL Basophils # 0.0 (0-0.2) k/uL Sodium 139 (137-145) mmol/L Potassium 3.7 (3.5-5.1) mmol/L Chloride 104 (98-107) mmol/L Carbon Dioxide 22 (22-30) mmol/L Anion Gap 13 mmol/L BUN 16 (7-17) mg/dL Creatinine 0.71 (0.52-1.04) mg/dL Est GFR (CKD-EPI)AfAm >90 (>60 ml/min/1.73 sqM) Est GFR (CKD-EPI)NonAf >90 (>60 ml/min/1.73 sqM) Glucose 116 H (74-99) mg/dL Calcium 8.8 (8.4-10.2) mg/dL Total Bilirubin 0.4 (0.2-1.3) mg/dL AST 17 (14-36) U/L ALT 12 (4-34) U/L Alkaline Phosphatase 95 (38-126) U/L Total Protein 7.0 (6.3-8.2) g/dL Albumin 4.1 (3.5-5.0) g/dL Urine HCG, Qual (Not Detectd) Salicylates <1.0 mg/dL Urine Opiates Screen (NotDetected) Ur Oxycodone Screen (NotDetected) Urine Methadone Screen (NotDetected) Acetaminophen <10.0 ug/mL Ur Barbiturates Screen (NotDetected) U Tricyclic Antidepress (NotDetected) Ur Phencyclidine Scrn (NotDetected) Ur Amphetamines Screen (NotDetected) U Methamphetamines Scrn (NotDetected) U Benzodiazepines Scrn (NotDetected) Urine Cocaine Screen (NotDetected) U Marijuana (THC) Screen (NotDetected) Acetone, Qual Negative (Negative) Influenza Type A (PCR) (Not Detectd) Influenza Type B (PCR) (Not Detectd) RSV (PCR) (Not Detectd) SARS-CoV-2 (PCR) (Not Detectd) 10/08/24 10/08/24 10/08/24 Range/Units 14:21 14:21 16:40 WBC (3.8-10.6) k/uL RBC (3.80-5.40) m/uL Hgb (11.4-16.0) gm/dL Hct (34.0-46.0) % MCV (80.0-100.0) fL MCH (25.0-35.0) pg MCHC (31.0-37.0) g/dL RDW (11.5-15.5) % Plt Count (150-450) k/uL MPV Neutrophils % % Lymphocytes % % Monocytes % % Eosinophils % % Basophils % % Neutrophils # (1.3-7.7) k/uL Lymphocytes # (1.0-4.8) k/uL Monocytes # (0-1.0) k/uL Eosinophils # (0-0.7) k/uL Basophils # (0-0.2) k/uL Sodium (137-145) mmol/L Potassium (3.5-5.1) mmol/L Chloride (98-107) mmol/L Carbon Dioxide (22-30) mmol/L Anion Gap mmol/L BUN (7-17) mg/dL Creatinine (0.52-1.04) mg/dL Est GFR (CKD-EPI)AfAm (>60 ml/min/1.73 sqM) Est GFR (CKD-EPI)NonAf (>60 ml/min/1.73 sqM) Glucose (74-99) mg/dL Calcium (8.4-10.2) mg/dL Total Bilirubin (0.2-1.3) mg/dL AST (14-36) U/L ALT (4-34) U/L Alkaline Phosphatase (38-126) U/L Total Protein (6.3-8.2) g/dL Albumin (3.5-5.0) g/dL Urine HCG, Qual Not Detected (Not Detectd) Salicylates mg/dL Urine Opiates Screen Not Detected (NotDetected) Ur Oxycodone Screen Not Detected (NotDetected) Urine Methadone Screen Not Detected (NotDetected) Acetaminophen ug/mL Ur Barbiturates Screen Not Detected (NotDetected) U Tricyclic Antidepress Not Detected (NotDetected) Ur Phencyclidine Scrn Not Detected (NotDetected) Ur Amphetamines Screen Not Detected (NotDetected) U Methamphetamines Scrn Not Detected (NotDetected) U Benzodiazepines Scrn Not Detected (NotDetected) Urine Cocaine Screen Not Detected (NotDetected) U Marijuana (THC) Screen Detected H (NotDetected) Acetone, Qual (Negative) Influenza Type A (PCR) Not Detected (Not Detectd) Influenza Type B (PCR) Not Detected (Not Detectd) RSV (PCR) Not Detected (Not Detectd) SARS-CoV-2 (PCR) Not Detected (Not Detectd) Disposition Clinical Impression: Attempted suicide, Overdose by ingestion Disposition: ADMITTED IP TO THIS [facility] Condition: Stable Is patient prescribed a controlled substance at d/c from ED?: No Time of Disposition: 16:12 Decision Date: 10/08/24 Decision Time: 16:12
[2024-10-08 12:39] LABS: Basophils % (A) 0 %; Eosinophils # (A) 0.2 k/uL (0-0.7); Eosinophils % (A) 2 %; HCT 44.9 % (34.0-46.0); HGB 14.7 gm/dL (11.4-16.0); Lymphocytes # (A) 1.4 k/uL (1.0-4.8); Lymphocytes % (A) 16 %; MCH 29.9 pg (25.0-35.0); MCHC 32.8 g/dL (31.0-37.0); MCV 91.1 fL (80.0-100.0); Mean Platelet Volume 7.4; Monocytes # (A) 0.3 k/uL (0-1.0); Monocytes % (A) 3 %; Neutrophils # (A) 6.9 k/uL (1.3-7.7); Neutrophils % (A) 78 %; Platelet Count 273 k/uL (150-450); RBC 4.92 m/uL (3.80-5.40); RDW 12.7 % (11.5-15.5); WBC 8.9 k/uL (3.8-10.6)
[2024-10-08 13:24] LABS: ALT 12 U/L (4-34); AST 17 U/L (14-36); African American GFR (CKD) >90 (>60 ml/min/1.73 sqM); Albumin 4.1 g/dL (3.5-5.0); Alkaline Phosphatase 95 U/L (38-126); Anion Gap 13 mmol/L; Blood Urea Nitrogen 16 mg/dL (7-17); Calcium 8.8 mg/dL (8.4-10.2); Carbon Dioxide 22 mmol/L (22-30); Chloride 104 mmol/L (98-107); Glucose 116 mg/dL (74-99); Non-African American GFR(CKD) >90 (>60 ml/min/1.73 sqM); Potassium 3.7 mmol/L (3.5-5.1); Sodium 139 mmol/L (137-145); Total Bilirubin 0.4 mg/dL (0.2-1.3)
[2024-10-08 14:34] LABS: Acetaminophen <10.0 ug/mL; Salicylate <1.0 mg/dL
[2024-10-08 15:09] LABS: Amphetamine Screen,Urine Not Detected (NotDetected); Barbiturate Screen,Urine Not Detected (NotDetected); Benzodiazepines Screen,Urine Not Detected (NotDetected); Cocaine Screen,Urine Not Detected (NotDetected); Methadone Screen, Urine Not Detected (NotDetected); Opiate Screen,Urine Not Detected (NotDetected); Oxycodone Screen, Urine Not Detected (NotDetected); Phencyclidine Screen,Urine Not Detected (NotDetected); Tricyclic Antidepressant,Urine Not Detected (NotDetected); Urn Cannabinoid Scrn Detected (NotDetected)
[2024-10-08] MEDS ORDERED: IBUPROFEN 600 MG TAB PO PRN (18:04)
[2024-10-08] MEDS ORDERED: ACETAMINOPHEN TAB 325 MG TAB PO PRN (18:04)
[2024-10-08] MEDS ORDERED: MAG HYDROX/AL HYDROX/SIMETH 355 ML BOTTLE PO PRN (18:04)
[2024-10-08] MEDS ORDERED: MAGNESIUM HYDROXIDE 2,400 MG/30 ML CUP PO PRN (18:04)
[2024-10-08] MEDS ORDERED: haloperidoL 5 MG TAB PO PRN (18:06)
[2024-10-08] MEDS ORDERED: LORazepam 1 MG TAB PO PRN (18:06)
[2024-10-08] MEDS ORDERED: HALOPERIDOL LACTATE 5 MG/ML 1 ML VIAL IM PRN (18:06)
[2024-10-08] MEDS ORDERED: ONDANSETRON 4 MG TAB PO PRN (18:06)
[2024-10-09] MEDS: NICOTINE 14MG/24HR PATCH TRANSDERM SCH (09:53)
[2024-10-09] MEDS: lamoTRIgine 25 MG TAB PO SCH (10:56)
[2024-10-09 11:15] LABS: Amorphous Sediment,Urine Few /hpf; Appearance,Urine Turbid (Clear); Bacteria,Urine Rare /hpf; Bilirubin,Urine Negative (Negative); Blood,Urine Negative (Negative); Color,Urine Yellow; Glucose,Urine (UA) Negative (Negative); Ketones,Urine 2+ (Negative); Leukocyte Esterase,Urine Large (Negative); Mucus,Urine Moderate /hpf; Nitrite,Urine Negative (Negative); Protein,Urine Trace (Negative); RBC,Urine 2 /hpf (0-5); Specific Gravity,Urine 1.025 (1.001-1.035); Squamous Epithelial Cell,Urine 7 /hpf (0-4); WBC,Urine 16 /hpf (0-5)
--- NOTE | 2024-10-09 12:12 | P.HP ---
Psychiatric H&P - . H&P Date: 10/09/24 History & Physical: Allergies Allergy/AdvReac Type Severity Reaction Status Date / Time No Known Allergies Allergy Verified 10/08/24 12:39 Vital Signs Temp 98.4 F 10/09/24 06:40 Pulse 70 10/09/24 06:40 Resp 16 10/09/24 06:40 BP 118/72 10/09/24 06:40 Pulse Ox 97 10/09/24 06:40 FiO2 Intake & Output 10/08/24 10/09/24 10/09/24 18:59 06:59 18:59 Weight 90.718 kg 82.724 kg Laboratory Last Values WBC 8.9 k/uL (3.8-10.6) 10/08/24 12:11 RBC 4.92 m/uL (3.80-5.40) 10/08/24 12:11 Hgb 14.7 gm/dL (11.4-16.0) 10/08/24 12:11 Hct 44.9 % (34.0-46.0) 10/08/24 12:11 MCV 91.1 fL (80.0-100.0) 10/08/24 12:11 MCH 29.9 pg (25.0-35.0) 10/08/24 12:11 MCHC 32.8 g/dL (31.0-37.0) 10/08/24 12:11 RDW 12.7 % (11.5-15.5) 10/08/24 12:11 Plt Count 273 k/uL (150-450) 10/08/24 12:11 MPV 7.4 10/08/24 12:11 Neutrophils % 78 % 10/08/24 12:11 Lymphocytes % 16 % 10/08/24 12:11 Monocytes % 3 % 10/08/24 12:11 Eosinophils % 2 % 10/08/24 12:11 Basophils % 0 % 10/08/24 12:11 Neutrophils # 6.9 k/uL (1.3-7.7) 10/08/24 12:11 Lymphocytes # 1.4 k/uL (1.0-4.8) 10/08/24 12:11 Monocytes # 0.3 k/uL (0-1.0) 10/08/24 12:11 Eosinophils # 0.2 k/uL (0-0.7) 10/08/24 12:11 Basophils # 0.0 k/uL (0-0.2) 10/08/24 12:11 Sodium 139 mmol/L (137-145) 10/08/24 12:11 Potassium 3.7 mmol/L (3.5-5.1) 10/08/24 12:11 Chloride 104 mmol/L (98-107) 10/08/24 12:11 Carbon Dioxide 22 mmol/L (22-30) 10/08/24 12:11 Anion Gap 13 mmol/L 10/08/24 12:11 BUN 16 mg/dL (7-17) 10/08/24 12:11 Creatinine 0.71 mg/dL (0.52-1.04) 10/08/24 12:11 Est GFR (CKD-EPI)AfAm >90 (>60 ml/min/1.73 sqM) 10/08/24 12:11 Est GFR (CKD-EPI)NonAf >90 (>60 ml/min/1.73 sqM) 10/08/24 12:11 Glucose 116 mg/dL (74-99) H 10/08/24 12:[address] Glu mg/dL 100 mg/dL 10/09/24 07:26 Hemoglobin A1c 5.1 % (<=6.0) 10/09/24 07:26 Calcium 8.8 mg/dL (8.4-10.2) 10/08/24 12:11 Total Bilirubin 0.4 mg/dL (0.2-1.3) 10/08/24 12:11 AST 17 U/L (14-36) 10/08/24 12:11 ALT 12 U/L (4-34) 10/08/24 12:11 Alkaline Phosphatase 95 U/L (38-126) 10/08/24 12:11 Total Protein 7.0 g/dL (6.3-8.2) 10/08/24 12:11 Albumin 4.1 g/dL (3.5-5.0) 10/08/24 12:11 TSH 1.260 mIU/L (0.465-4.680) 10/09/24 07:26 Urine Color Yellow 10/08/24 14:21 Urine Appearance Turbid (Clear) H 10/08/24 14:21 Urine pH 6.0 (5.0-8.0) 10/08/24 14:21 Ur Specific [place] 1.025 (1.001-1.035) 10/08/24 14:21 Urine Protein Trace (Negative) H 10/08/24 14:21 Urine Glucose (UA) Negative (Negative) 10/08/24 14:21 Urine Ketones 2+ (Negative) H 10/08/24 14: Urine Blood Negative (Negative) 10/08/24 14: Urine Nitrite Negative (Negative) 10/08/24 14: Urine Bilirubin Negative (Negative) 10/08/24 14: Urine Urobilinogen 2.0 mg/dL (<2.0) 10/08/24 14:21 Ur Leukocyte Esterase Large (Negative) H 10/08/24 14:21 Urine RBC 2 /hpf (0-5) 10/08/24 14:21 Urine WBC 16 /hpf (0-5) H 10/08/24 14:21 Ur Squamous Epith Cells 7 /hpf (0-4) H 10/08/24 14: Amorphous Sediment Few /hpf (None) H 10/08/24 14:21 Urine Bacteria Rare /hpf (None) H 10/08/24 14:21 Urine Mucus Moderate /hpf (None) H 10/08/24 14:21 Urine HCG, Qual Not Detected (Not Detectd) 10/08/24 14:21 Salicylates <1.0 mg/dL 10/08/24 11:12 Urine Opiates Screen Not Detected (NotDetected) 10/08/24 14: Ur Oxycodone Screen Not Detected (NotDetected) 10/08/24 14:21 Urine Methadone Screen Not Detected (NotDetected) 10/08/24 14: Acetaminophen <10.0 ug/mL 10/08/24 11:12 Ur Barbiturates Screen Not Detected (NotDetected) 10/08/24 14: U Tricyclic Antidepress Not Detected (NotDetected) 10/08/24 14:21 Ur Phencyclidine Scrn Not Detected (NotDetected) 10/08/24 14:21 Trazodone 3475 ng/mL (500-1600) H 10/08/24 12:11 Ur Amphetamines Screen Not Detected (NotDetected) 10/08/24 14:21 U Methamphetamines Scrn Not Detected (NotDetected) 10/08/24 14:21 U Benzodiazepines Scrn Not Detected (NotDetected) 10/08/24 14:21 Urine Cocaine Screen Not Detected (NotDetected) 10/08/24 14:21 U Marijuana (THC) Screen Detected (NotDetected) H 10/08/24 14:21 Acetone, Qual Negative (Negative) 10/08/24 12:11 Influenza Type A (PCR) Not Detected (Not Detectd) 10/08/24 16:40 Influenza Type B (PCR) Not Detected (Not Detectd) 10/08/24 16:40 RSV (PCR) Not Detected (Not Detectd) 10/08/24 16:40 SARS-CoV-2 (PCR) Not Detected (Not Detectd) 10/08/24 16:40 10/09/24 12:01 IDENTIFYING DATA: Patient is a 29-year-old single female, recently employed at [employer] and currently homeless CHIEF COMPLAINT: Suicide attempt via OD HPI: Patient presented to the hospital after ingesting trazodone in a suicide attempt. EPS evaluation revealed, "Pt was brought in via EMS. Pt states that she took 1400-1500mgs of Trazodone around 0900. She states that she threw up a few times prior to EMS arriving, multiple times with EMS, and once in the ER. Pt only complains of some nausea at this time. Pts labs are WNL, pt is alert and oriented x4. Pts appearance is disheleved and unkempt. Pt is able to hold a logi froilan conversation and answers questions appropriatley. Pts gait is steady and able to complete her own ADLs. Pt seems to minimize the attempted overdose today. Pt does not take accountability and blames others for the fact that she overdosed today. "It's not me it's my BPD, I can't control that". Pt states that for the last year she has been homeless and living from couch to couch and dealing with finacial stressors. She was recently staying with her cousin who she states was mentally draining and belitting and lead to her to overdose. She was recently kicked out of there home. Pt appears to be childlike and impulsive, and a risk to self. Denies HI, hallucinations, or delusions. Pt does not have a desire to eat, lack of sleep, and a decrease in bathing. Denies ETOH use. Admits to marijuana use. Not on any home medications. was previously on Abilify and Vrylar but states they did not work for her." Patient seen and evaluated on the unit and was agreeable to speak to board writer in office. She reports ongoing stressors that contributed to her suicide attempt. She reports being homeless and not having a job however reports she has been staying at her cousins for the past 120 days and recently got a job at the [employer] with onboarding schedule for next week. She states issues between her and her cousin, stating the original agreement was for her to stay there temporarily rent free however her cousin requested her to start babysitting his kids and that this was when issue started developing. She states when she told her cousin that she was unable to watch his kids, he gave her a 2-week notice to get out of his house. She states yesterday she began having negative thoughts and she was unable to overcome them and that was when she ingested the trazodone but immediately regretted it and called 911. She states having her kids to live for whom are both currently living with her ex. She states having a history of borderline personality disorder and has been seeing her therapist twice a month. Reports issues with sleep, appetite, energy levels up and down, difficulties concentrating but denies any anhedonia. She does report a history of manic episodes described as irritability, decreased need for sleep along with racing thoughts. Patient denies any suicidal or homicidal ideations intent or plan. At this time patient denies any auditory or visual hallucinations. Patient denies any flight of ideas racing thoughts and increased in goal directed behavior. Patient admits to using cannabis and nicotine. PAST PSYCHIATRIC HISTORY: Patient has a history of borderline personality disorder, bipolar disorder. Patient denies being on any psychiatric medications. She has tried several medications in the past including Abilify, Lexapro, Vraylar, Trileptal. Patient reports 3 previous inpatient hospitalizations, last in 2021. Patient denies any psychiatric outpatient follow-up. She sees a therapist twice a month. Patient reports 3 previous suicide attempts via OD. PMH: as per ER note ALLERGIES: as per EMR SUBSTANCE USE HISTORY: Patient reports a history of severe alcohol use and opiate use however has been in remission from both of those. She reports smoki ng for lower cannabis daily and vaping nicotine daily as well. FAMILY PSYCHIATRIC/SUBSTANCE USE HISTORY: She reports having bipolar on both sides of her family, 3 aunts and a cousin have attempted suicide, father abused crack, opiates and alcohol, and aunt abused cocaine and opiates SOCIAL HISTORY: Patient is currently homeless however most recently was staying at her cousin's. She has 2 children who both live with her ex. She completed high school and recently got a job working at the [employer]. MENTAL STATUS EXAM: General Appearance: Patient appears to be stated age is alert, directable, and attempts to cooperate. Patient appears to have poor hygiene and grooming. Hair pulled back in a ponytail Behavior: Patient is seated without any agitated behavior. Patient is intermittently tearful Speech: Patient's speech is fluent and nonpressured. Mood/Affect: Patient reports their mood is depressed, affect is congruent and constricted. Suicidality/Homicidality: Patient denies having any homicidal ideation intent or plan. Denies any suicidal ideations intent or plan Perceptions: Patient denies any visual hallucinations and denies any auditory hallucinations Though content/process: There is no evidence of any delusional thought content and thought process is linear and goal-directed. Memory and concentration: AOX3, grossly intact for the purposes of this session. Can spell "WORLD" backwards Judgment and insight: Poor STRENGTHS/WEAKNESSES: strength is that patient is resilient. Weakness is that patient has poor judgment and is impulsive INTELLECT: Average IMPRESSIONS: Suicide attempt via OD Bipolar 2 disorder, current episode depressed Borderline personality disorder Cannabis use disorder Nicotine dependence Alcohol use disorder, in sustained remission Opiate use disorder, in sustained remission PLAN: -Patient is admitted under voluntary status to [facility] for stabilization of psychiatric symptoms and safety. Patient has signed adult voluntary form and medication consent and is placed in patient's chart. -Medications : Start Lamictal 25 mg daily for mood stabilization/bipolar depression -Ativan and Haldol PRN for agitation/aggression -Patient was counselled on substance abuse and desired to cut back on use -Patient was informed of the risks, benefits and side effects of the medication and patient verbally consented to taking the medications. Patient signed med c onsent form and was placed in chart. -Internal Medicine consult to perform medical evaluation and physical. -NRT -nicotine patch -SW on board for discharge planning. Encourage patient to participate in groups to work on coping skills. Anticipate discharge on Saturday pending stabilization in mood symptoms
--- NOTE | 2024-10-09 23:16 | P.MDCNMH ---
<Srinivasa Bolaños - Last Filed: 10/09/24 23:15> History of Present Illness H&P Date: 10/09/24 Reason for consult: Medical Management History of present illness; 29-year-old female with GERD and asthma presents after suicide attempt via overdose. Patient reports she took 1400-1500mgs of Trazodone around 0900. She states that she threw up a few times prior to EMS arriving, multiple times with EMS, and once in the ER. REVIEW OF SYSTEMS: All systems reviewed, pertinent positives and negatives noted in HPI. All other symptoms are negative. PHYSICAL EXAMINATION: Vitals reviewed GENERAL: No acute distress. Well developed, well nourished. HEENT: No scleral icterus. Normocephalic, atraumatic. CARDIOVASCULAR: S1 and S2 present. No murmurs, rubs, or gallops. PULMONARY: Chest is clear to auscultation, no wheezing, rhonchi, or crackles. MUSCULOSKELETAL: No apparent joint swelling and deformities. EXTREMITIES: No apparent cyanosis, clubbing, or pedal edema. NEUROLOGICAL: The patient is alert and oriented x3, Gross neurological examination did not reveal any focal deficits. 5/5 strength bilateral UE and LE; CN2-12 intact, without gross abnormality. SKIN: Redness noted in the abdominal fold. Assessment and plan 29-year-old female with GERD and asthma presents after suicide attempt via overdose. Patient being seen by internal medicine for medical management. Chronic Medical Conditions #Asthma: -Not in acute exacerbation -No home medications #GERD -No home medications #Chronic back pain -Patient is recovering opioid addict -Continue ibuprofen and acetaminophen #Suicidal ideation, borderline personality disorder, and bipolar disorder -Psychological medications per the primary psychiatry team -Patient reported difficulty with sleeping, ordered melatonin 5 mg at bedtime Code status: Full code Patient is stable from medical stand point Dictation was produced using [employer] dictation software. Please excuse any grammatical, word or spelling errors. Past Medical History Past Medical History: Asthma, GERD/Reflux Additional Past Medical History / Comment(s): IBS History of Any Multi-Drug Resistant Organisms: None Reported Past Surgical History: No Surgical Hx Reported Past Anesthesia/Blood Transfusion Reactions: No Reported Reaction Past Psychological History: Anxiety Additional Psychological History / Comment(s): BPD Smoking Status: Vaper Past Alcohol Use History: Rare Past Drug Use History: Marijuana Medications and Allergies Home Medications Medication Instructions Recorded Confirmed Type traZODone HCL [Desyrel] 100 mg PO HS PRN 10/08/24 10/08/24 History Allergies Allergy/AdvReac Type Severity Reaction Status Date / Time No Known Allergies Allergy Verified 10/08/24 12:39 Physical Exam Vitals: Vital Signs Temp Pulse Resp BP Pulse Ox 10/09/24 06:40 98.4 F 70 16 118/72 97 Results CBC & Chem 7: 10/08/24 12:11 10/08/24 12:11 Labs: Abnormal Lab Results - Last 24 Hours (Table) 10/08/24 10/08/24 Range/Units 12:11 14:21 Urine Appearance Turbid H (Clear) Urine Protein Trace H (Negative) Urine Ketones 2+ H (Negative) Ur Leukocyte Esterase Large H (Negative) Urine WBC 16 H (0-5) /hpf Ur Squamous Epith Cells 7 H (0-4) /hpf Amorphous Sediment Few H (None) /hpf Urine Bacteria Rare H (None) /hpf Urine Mucus Moderate H (None) /hpf Trazodone 3475 H (500-1600) ng/mL <Lauren Garcia - Last Filed: 10/10/24 00:13> History of Present Illness I have seen and evaluated the patient today. I Discussed the case with the resident and agree with the resident's findings I edited the assessment and plan as necessary as documented in the resident's note. Physical Exam Vitals: Vital Signs Temp Pulse Resp BP Pulse Ox 10/09/24 06:40 98.4 F 70 16 118/72 97 Cranial Nerve Examination - Cranial Nerves Cranial Nerve II- Optic: Intact Cranial Nerve III- Oculomotor: Intact Cranial Nerve IV- Trochlear: Intact Cranial Nerve V- Trigeminal: Intact Cranial Nerve - Abducens: Intact Cranial Nerve VII- Facial: Intact Cranial Nerve VIII- Auditory: Intact Cranial Nerve IX- Glossopharyngeal: Intact Cranial Nerve X- Vagus: Intact Cranial Nerve XI- Accessory: Intact Cranial Nerve XII- Hypoglossal: Intact Results CBC & Chem 7: 10/08/24 12:11 10/08/24 12:11 Labs: Abnormal Lab Results - Last 24 Hours (Table) 10/08/24 10/08/24 Range/Units 12:11 14:21 Urine Appearance Turbid H (Clear) Urine Protein Trace H (Negative) Urine Ketones 2+ H (Negative) Ur Leukocyte Esterase Large H (Negative) Urine WBC 16 H (0-5) /hpf Ur Squamous Epith Cells 7 H (0-4) /hpf Amorphous Sediment Few H (None) /hpf Urine Bacteria Rare H (None) /hpf Urine Mucus Moderate H (None) /hpf Trazodone 3475 H (500-1600) ng/mL
[2024-10-10] MEDS: MELATONIN 5 MG TABLET PO SCH (00:30)
[2024-10-10] MEDS: NICOTINE GUM (POLACRILEX) 2 MG GUM BUCCAL PRN (08:34)
--- NOTE | 2024-10-10 12:04 | P.PN ---
Progress Note - Text Interval history: Patient was seen and was directable and agreeable to speak with administrative underwriter. reports improvement of depression and anxiety. States that she still had mild depression this morning and is "a little sad" because she misses her children. Reports some agitation this morning.. At this time patient denies any suicidal or homicidal ideations intent or plan. Denies any Auditory or visual hallucinations. Patient denies any side effects from the medications and has been compliant with meds. Mental status exam: General Appearance: [Patient appears to be older than stated age is alert, directable, and cooperative.] Behavior: [No agitated behavior. Patient is calm and directable] Speech: Patient's speech is fluent and nonpressured. Mood/Affect: Mood is improving mildly, affect is congruent and constricted. Suicidality/Homicidality: Patient denies having any suicidal or homicidal ideation intent or plan. Perceptions: Patient denies any auditory or visual hallucinations. Though content/process: [There is no evidence of any delusional thought content and thought process is linear and goal-directed.] Memory and concentration: AOX3, grossly intact for the purposes of this session Judgment and insight: improving mildly Assessment/Plan: Continue with current diagnosis. Patient continues to meet criteria for inpatient psychiatric admission for symptom stabilization and safety.[Patient will be maintained on current psychotropic medication regimen.] Monitor for medication compliance and for any psychotropic medication side effects. Will continue to monitor ongoing response to treatment. Encouraged participation in milieu.
[2024-10-11] MEDS: hydrOXYzine pamoate 25 MG CAP PO PRN (08:40)
--- NOTE | 2024-10-11 13:05 | P.PN ---
Progress Note - Text Interval history: Patient was seen and was directable and agreeable to speak with financial underwriter. states that she is doing "good" but reports some anxiety. At this time patient denies any suicidal or homicidal ideations intent or plan. Denies any Auditory or visual hallucinations. Patient denies any side effects from the medications and has been compliant with meds. Mental status exam: General Appearance: [Patient appears to be older thanstated age is alert, directable, and cooperative.] Behavior: [No agitated behavior. Patient is calm and directable] Speech: Patient's speech is fluent and nonpressured. Mood/Affect: Mood is improving mildly, affect is congruent and constricted. Suicidality/Homicidality: Patient denies having any suicidal or homicidal ideation intent or plan. Perceptions: Patient denies any auditory or visual hallucinations. Though content/process: [There is no evidence of any delusional thought content and thought process is linear and goal-directed.] Memory and concentration: AOX3, grossly intact for the purposes of this session Judgment and insight: improving mildly Assessment/Plan: Continue with current diagnosis. Patient continues to meet criteria for inpatient psychiatric admission for symptom stabilization and safety.[Patient will be maintained on current psychotropic medication regimen.] Monitor for medication compliance and for any psychotropic medication side effects. Will continue to monitor ongoing response to treatment. Encouraged participation in milieu.
--- NOTE | 2024-10-12 12:03 | P.PN ---
Progress Note - Text Progress Note Date: 10/12/24 Interval History: Patient was seen wandering the hallways and was directable and agreeable to sp goyo with video games storywriter in the office. Patient notably tearful during encounter. She states the weekend was rough mostly due to an intrusive peer which triggered her PTSD. She reports staff was able to move her to a different room given this peer however she still has to interact with them and see them on the unit. She also expresses difficulty with the food here as she has texture sensitivities. She reports experiencing a night terror last night given the stress going on on the unit. She reports high anxiety however states that Vistaril has been helpful for this. She states her grandmother reported that she is able to stay with her for a few days and then she will stay with a friend in the [place] area. She was goal oriented and talked about wanting to see her kids. She now realizes that taking the trazodone was not a good idea and she now realizes that she could have late on her support system when having suicidal thoughts. At this time patient denies any suicidal or homicidal ideations, intent or plan. Patient denies any auditory, visual hallucinations and denies any paranoia or delusions. Patient denies any side effects from the medications and has been compliant with meds. Mental Status Exam: General Appearance: Patient appears to be stated age is alert, directable, and cooperative. Behavior: Patient is calmly seated without any agitated behavior. Patient is tearful Speech: Patient's speech is fluent and nonpressured. Mood/Affect: Mood is "upset", affect is congruent and anxious. Suicidality/Homicidality: Patient denies having any suicidal or homicidal ideation intent or plan. Perceptions: Patient denies any visual hallucinations and denies any auditory hallucinations Though content/process: There is no evidence of any delusional thought content and thought process is linear and goal-directed. Memory and concentration: AOX3, grossly intact for the purposes of this session Judgment and insight: Improving mildly Assessment Suicide attempt via OD Bipolar 2 disorder, current episode depressed Borderline personality disorder Cannabis use disorder Nicotine dependence Alcohol use disorder, in sustained remission Opiate use disorder, in sustained remission Plan: -Patient continues to meet criteria for inpatient psychiatric admission for symptom stabilization and safety. Patient has signed adult voluntary form and medication consent and was placed in patient's chart. -Medications: Continue Lamictal 25 mg daily for mood stabilization/bipolar depression, plan to increase this on the outpatient side given the slow titration standards, continue melatonin 5 mg at bedtime for sleep -When necessary Ativan and Haldol for agitation/aggression. -Labs: Reviewed -NRT -nicotine patch -SW on board for discharge planning. Encouraged the patient to participate in milieu. Anticipate discharge home with grandma tomorrow, patient denied any firearms in the home
[2024-10-13 12:04] VITALS: BP 110/80; PULSE 73; RESP 16; TEMP 98
--- NOTE | 2024-10-13 12:16 | P.DS ---
Providers Date of admission: 10/08/24 18:02 Expected date of discharge: 10/13/24 Attending physician: Darleen Burkett MD Consults: 10/08/24 18:04 Consult Physician Routine Consulting Provider: Romina Russ Consult Reason/Comments: H&P Do you want consulting provider notified?: Yes Primary care physician: Stated None - Discharge Diagnosis(es) (1) Attempted suicide Status: Acute Priority: High (2) Bipolar 2 disorder Status: Acute Priority: High (3) Borderline personality disorder Status: Chronic Priority: High (4) Cannabis use disorder Status: Chronic Priority: Low (5) Nicotine dependence Status: Chronic Priority: Low (6) Alcohol use disorder, mild, in sustained remission Status: Chronic Priority: Low (7) Opioid use disorder in remission Status: Chronic Priority: Low Hospital Course: Admission HPI: Admission note was completed by short story writer "Patient presented to the hospital after ingesting trazodone in a suicide attempt. EPS evaluation revealed, "Pt was brought in via EMS. Pt states that she took 1400-1500mgs of Trazodone around 0900. She states that she threw up a few times prior to EMS arriving, multiple times with EMS, and once in the ER. Pt only complains of some nausea at this time. Pts labs are WNL, pt is alert and oriented x4. Pts appearance is dishele alayna and unkempt. Pt is able to hold a logical conversation and answers questions appropriatley. Pts gait is steady and able to complete her own ADLs. Pt seems to minimize the attempted overdose today. Pt does not take accountability and blames others for the fact that she overdosed today. "It's not me it's my BPD, I can't control that". Pt states that for the last year [place] and dealing with finacial stressors. She was recently staying with her cousin who she states was mentally draining and belitting and lead to her to overdose. She was recently kicked out of there home. Pt appears to be childlike and impulsive, and a risk to self. Denies HI, hallucinations, or delusions. Pt does not have a desire to eat, lack of sleep, and a decrease in bathing. Denies ETOH use. Admits to marijuana use. Not on any home medications. was previously on Abilify and Vrylar but states they did not work for her." Patient seen and evaluated on the unit and was agreeable to speak to short story writer in office. She reports ongoing stressors that contributed to her suicide attempt. She reports being homeless and not having a job however reports she has been staying at her cousins for the past 120 days and recently got a job at the [employer] with onboarding schedule for next week. She states issues between her and her cousin, stating the original agreement was for her to stay there temporarily rent free however her cousin requested her to start babysitting his kids and that this was when issue started developing. She states when she told her cousin that she was unable to watch his kids, he gave her a 2-week notice to get out of his house. She states yesterday she began having negative thoughts and she was unable to overcome them and that was when she ingested the trazodone but immediately regretted it and called 911. She states having her kids to live for whom are both currently living with her ex. She states having a history of borderline personality disorder and has been seeing her therapist twice a month. Reports issues with sleep, appetite, energy levels up and down, difficulties concentrating but denies any anhedonia. She does report a history of manic episodes described as irritability, decreased need for sleep along with racing thoughts. Patient denies any suicidal or homicidal ideations intent or plan. At this time patient denies any auditory or visual hallucinations. Patient denies any flight of ideas racing thoughts and increased in goal directed behavior. Patient admits to using cannabis and nicotine." Hospital course: Upon admission to the unit patient was directable and agreeable to commence treatment and signed adult voluntary form.. Patient got along well with other patients on the unit and followed unit protocol. Patient was compliant with the medications and denied any side effects throughout hospital course. Patient was started on Lamictal 25 mg daily for mood stabilization/bipolar depression and melatonin 5 mg at bedtime for sleep. Patient spoke of her stressors and engaged in therapy both group and individual. Patient was also seen by medical team for history and physical exam. Throughout the course of the hospitalization patient gradually improved with regards to mood, anxiety, sleep and became more future oriented with improved insight and judgment. On the day of discharge patient denied any suicidal or homicidal ideations intent or plan denied any auditory or visual hallucinations. The patient denied any access to guns or weapons. Patient denied any paranoia and did not endorse any delusions. Patient does have a significant history of substance abuse and was counseled on abstaining from all substances including alcohol and marijuana. Patient was also counseled on the medications and need for regular compliance and was encouraged to follow- up with their outpatient appointment for mental health and also for primary care. Prior to discharge a family meeting will be arranged by transition social worker to answer any questions and ensure safety upon discharge incuding making sure that guns/weapons are either removed from the home or locked away. Patient to be discharged home with [facility] today who confirms no firearms in the home. She will follow up with [facility] for outpatient Mental status exam: General Appearance: Patient appears to be stated age is alert, pleasant, and cook dinner perative. Patient is in no acute distress and has improved hygiene and grooming Behavior: Patient is calmly seated without any agitated behavior. Speech: Patient's speech is fluent and nonpressured. Mood/Affect: Patient reports their mood is "good", affect is congruent and euthymic. Suicidality/Homicidality: Patient denies having any suicidal or homicidal ideation intent or plan. Perceptions: Patient denies any auditory or visual hallucinations. Though content/process: There is no evidence of any delusional thought content and thought process is linear and goal-directed. Memory and concentration: AOX3, grossly intact for the purposes of this session. Can spell "WORLD" backwards correctly. Judgment and insight: Chronically poor, however has improved with guarded prognosis Impression: Suicide attempt via OD Bipolar 2 disorder current episode depressed Borderline personality disorder Cannabis use disorder Nicotine dependence Alcohol use disorder, in sustained remission Opioid use disorder in sustained remission Plan: -Continue with discharge today as patient has improved and stabilized psychiatrically and is not currently an imminent threat to themself and/or others. -Continue medications: Lamotrigine 25 mg daily with a plan to increase this outpatient, melatonin 5 mg at bedtime -Patient was counseled on the need for medication compliance and appropriate follow-up at mental health and also primary care for medical issues. Patient verbalized understanding and agreed. -Social work to help coordinate patients discharge today arrange for and conduct family meeting to ensure safety upon discharge and answer any questions/concerns. also to ensure safe home environment that guns/weapons are either removed from the home or locked away. Social work also to arrange for p atients follow up appointments with [facility] for psychiatric care along with follow up with primary care provider. -Patient counseled on abstaining from recreational drugs and marijuana and alcohol. Was informed/educated on the adverse effects on their physical and mental health. Patient verbally agreed and understood. -Patient was instructed to return to the hospital or seek immediate medical care if their psychiatric or medical symptoms do worsen or reoccur. Abnormal Labs 10/08/24 10/08/24 10/08/24 12:11 12:11 14:21 Glucose 116 H Urine Appearance Urine Protein Urine Ketones Ur Leukocyte Esterase Urine WBC Ur Squamous Epith Cells Amorphous Sediment Urine Bacteria Urine Mucus Trazodone 3475 H U Marijuana (THC) Screen Detected H 10/08/24 14:21 Glucose Urine Appearance Turbid H Urine Protein Trace H Urine Ketones 2+ H Ur Leukocyte Esterase Large H Urine WBC 16 H Ur Squamous Epith Cells 7 H Amorphous Sediment Few H Urine Bacteria Rare H Urine Mucus Moderate H Trazodone U Marijuana (THC) Screen Vital Signs Temp 98 F 10/13/24 12:03 Pulse 73 10/13/24 12:03 Resp 16 10/13/24 12:03 BP 110/80 10/13/24 12:03 Pulse Ox 97 10/13/24 12:03 FiO2 Allergies Allergy/AdvReac Type Severity Reaction Status Date / Time No Known Allergies Allergy Verified 10/08/24 12:39 Plan - Discharge Summary Discharge Rx Participant: No New Discharge Prescriptions: New Nicotine 14Mg/24Hr Patch [Habitrol] 1 patch TRANSDERM DAILY patch lamoTRIgine [LaMICtal] 25 mg PO DAILY 30 Days #30 tab Melatonin 5 mg PO HS 30 Days #30 tab Nicotine Gum (Polacrilex) [Nicorette] 2 mg BUCCAL Q4HR PRN pieceofgum PRN Reason: Nicotine Cravings hydrOXYzine pamoate [Vistaril] 25 mg PO Q6HR PRN 30 Days #90 cap PRN Reason: Anxiety Discontinued traZODone HCL [Desyrel] 100 mg PO HS PRN PRN Reason: sleep Discharge Medication List Melatonin 5 mg PO HS 30 Days #30 tab 10/13/24 [Rx] Nicotine 14Mg/24Hr Patch [Habitrol] 1 patch TRANSDERM DAILY patch 10/13/24 [Rx] Nicotine Gum (Polacrilex) [Nicorette] 2 mg BUCCAL Q4HR PRN pieceofgum 10/13/24 [Rx] hydrOXYzine pamoate [Vistaril] 25 mg PO Q6HR PRN 30 Days #90 cap 10/13/24 [Rx] lamoTRIgine [LaMICtal] 25 mg PO DAILY 30 Days #30 tab 10/13/24 [Rx] Follow up Appointment(s)/Referral(s): [facility] [Other] - 10/15/24 8:30 am (Mrs Casarez 10/15 @ 08:30) [facility] [REFERRING] - 1 Week Patient Instructions/Handouts: Bipolar Disorder (DC), Borderline Personality D isorder (DC), Suicide Prevention (DC) Activity/Diet/Wound Care/Special Instructions: Avoid the use of street drugs and alcohol. Take all medications as prescribed. When you are in need of refills on your medications, please contact your medical provider and/or outpatient psychiatrist/provider to have this done. Please go to your scheduled outpatient appointment for aftercare treatment. If symptoms return or become worse, call the crisis line at and/or go to the nearest emergency room for evaluation. National Suicide Hotline 98 Discharge Disposition: HOME SELF-CARE
== END 2024-10-13 11:54 | disposition home or self-care (01) | DRG 817 ==
LOC: EC 10:57 → 3MHU 18:02
PROVIDERS: ADMIT Psychiatry & Neurology Psychiatry; ATTEND Psychiatry & Neurology Psychiatry
DX: T43.212A Poisoning by selective serotonin and norepinephrine reuptake inhibitors, intentional self-harm, initial encounter (principal); F10.11 Alcohol abuse, in remission; F11.21 Opioid dependence, in remission; F12.10 Cannabis abuse, uncomplicated; F31.81 Bipolar II disorder; F43.10 Post-traumatic stress disorder, unspecified; F41.9 Anxiety disorder, unspecified; G89.29 Other chronic pain; K58.9 Irritable bowel syndrome, unspecified; F17.210 Nicotine dependence, cigarettes, uncomplicated; Z71.41 Alcohol abuse counseling and surveillance of alcoholic; Z71.6 Tobacco abuse counseling; J45.909 Unspecified asthma, uncomplicated; K21.9 Gastro-esophageal reflux disease without esophagitis; Z59.00 Homelessness unspecified; F60.3 Borderline personality disorder; Z79.899 Other long term (current) drug therapy; Z91.51 Personal history of suicidal behavior
CPT/HCPCS: 36415; 80053; 80143; 80179; 80299; 80306; 81001; 81025; 82009; 82075; 83036; 84443; 85025; 87636; 93005; 99285

== ENCOUNTER 2025-05-23 18:23 | Emergency (ER) | payer OTHER ==
--- NOTE | 2025-05-23 18:47 | ED ---
General Adult HPI - General Chief complaint: Nausea/Vomiting/Diarrhea Stated complaint: NVD Time Seen by Provider: 05/23/25 18:24 Source: patient, EMS, RN notes reviewed Mode of arrival: EMS Limitations: no limitations - History of Present Illness Initial comments: 29-year-old female presents to the emergency department for evaluation of dizziness and nausea and vomiting. Patient notes that symptoms started today after she got off of a carnival ride. She notes that prior to that she took a THC dab and had 1 alcoholic beverage. She notes feeling dizzy and lightheaded. She has had multiple episodes of vomiting. She also endorses diarrhea. She denies any fever, chills. Denies any abdominal pain. - Related Data Previous Rx's Medication Instructions Recorded Melatonin 5 mg PO HS 30 Days #30 tab 10/13/24 Nicotine 14Mg/24Hr Patch [Habitrol] 1 patch TRANSDERM DAILY patch 10/13/24 Nicotine Gum (Polacrilex) 2 mg BUCCAL Q4HR PRN pieceofgum 10/13/24 [Nicorette] hydrOXYzine pamoate [Vistaril] 25 mg PO Q6HR PRN 30 Days #90 cap 10/13/24 lamoTRIgine [LaMICtal] 25 mg PO DAILY 30 Days #30 tab 10/13/24 Allergies Allergy/AdvReac Type Severity Reaction Status Date / Time No Known Allergies Allergy Verified 10/08/24 12:39 Review of Systems ROS Statement: Those systems with pertinent positive or pertinent negative responses have been documented in the HPI. ROS Other: All systems not noted in ROS Statement are negative. Past Medical History Past Medical History: Asthma, GERD/Reflux Additional Past Medical History / Comment(s): IBS History of Any Multi-Drug Resistant Organisms: None Reported Past Surgical History: No Surgical Hx Reported Past Anesthesia/Blood Transfusion Reactions: No Reported Reaction Past Psychological History: Anxiety Smoking Status: Vaper Past Alcohol Use History: Rare Past Drug Use History: Marijuana General Exam Limitations: no limitations General appearance: alert, in no apparent distress Head exam: Present: atraumatic, normocephalic, normal inspection Eye exam: Present: normal appearance, PERRL, EOMI. Absent: scleral icterus, conjunctival injection, periorbital swelling ENT exam: Present: normal exam, mucous membranes moist Respiratory exam: Present: normal lung sounds bilaterally. Absent: respiratory distress, wheezes, rales, rhonchi, stridor Cardiovascular Exam: Present: regular rate, normal rhythm, normal heart sounds. Absent: systolic murmur, diastolic murmur, rubs, gallop, clicks GI/Abdominal exam: Present: soft, normal bowel sounds. Absent: distended, tenderness, guarding, rebound, rigid Extremities exam: Present: normal inspection, full ROM, normal capillary refill. Absent: tenderness, pedal edema, joint swelling, calf tenderness Neurological exam: Present: alert, oriented X3 Psychiatric exam: Present: normal affect, normal mood Skin exam: Present: warm, dry, intact, normal color. Absent: rash Course Vital Signs 05/23/25 05/23/25 05/23/25 18:26 19:18 20:11 Temperature 97.9 F Pulse Rate 78 62 74 Respiratory 18 19 17 Rate Blood Pressure 90/50 96/69 101/71 O2 Sat by Pulse 100 100 100 Oximetry 05/23/25 21:58 Temperature 98.2 F Pulse Rate 78 Respiratory 19 Rate Blood Pressure 110/80 O2 Sat by Pulse 99 Oximetry Medical Decision Making - Medical Decision Making Was pt. sent in by a medical professional or institution (, PA, [employer], urgent care, hospital, or fdc...) When possible be specific @ -No Did you speak to anyone other than the patient for history (EMS, parent, family, police, friend...)? What history was obtained from this source @ -No Did you review nursing and triage notes (agree or disagree)? Why? @ -I reviewed and agree with nursing and triage notes Were old charts reviewed (outside hosp., previous admission, EMS record, old EKG, old radiological studies, urgent care reports/EKG's, fdc records)? Report findings @ -No old charts were reviewed Differential Diagnosis (chest pain, altered mental status, abdominal pain women, abdominal pain men, vaginal bleeding, weakness, fever, dyspnea, syncope, headache, dizziness, GI bleed, back pain, seizure, CVA, palpatations, mental health, musculoskeletal)? @ -Differential Dizziness: Benign paroxysmal positional Vertigo, Meniere's disease, otitis media, acoustic neuroma, vertebrobasilar insufficiency, cerebellar stroke, encephalitis, hypovolemic, arrhythmia, coronary artery syndrome, anemia, this is not meant to be an all-inclusive list EKG interpreted by me (3pts min.). @ -EKG@1858 shows sinus rhythm rate 64, GA 134, QRS 83, QTQTc [id number] X-rays interpreted by me (1pt min.). @ -None done CT interpreted by me (1pt min.). @ -None done U/S interpreted by me (1pt. min.). @ -None done What testing was considered but not performed or refused? (CT, X-rays, U/S, labs)? Why? @ -None What meds were considered but not given or refused? Why? @ -None Did you discuss the management of the patient with other professionals (professionals i.e. DrHortensia, PA, [employer] C[employer]IER, lab, RT, psych nurse, social security assessor, hearth feeder, teacher, surveillance officer, pillowcase sewer)? Give summary @ -No Was smoking cessation discussed for >3mins.? @ -No Was critical care preformed (if so, how long)? @ -No Were there social determinants of health that impacted care today? How? (Homelessness, low income, unemployed, alcoholism, drug addiction, transp ortation, low edu. Level, literacy, decrease access to med. care, senior care, rehab)? @ -No Was there de-escalation of care discussed even if they declined (Discuss DNR or withdrawal of care, Hospice)? DNR status @ -No What co-morbidities impacted this encounter? (DM, HTN, Smoking, COPD, CAD, Cancer, CVA, ARF, Chemo, Hep., AIDS, mental health diagnosis, sleep apnea, morbid obesity)? @ -None Was patient admitted / discharged? Hospital course, mention meds given and route, prescriptions, significant lab abnormalities, going to OR and other pertinent info. @ -Discharge. Patient presents emergency department for evaluation of lightheadedness and nausea and vomiting following riding a carnival ride and taking THC. Laboratories studies revealed no significant leukocytosis, hemoglobin 13.9; normal coagulation studies; CMP is nonactionable UA shows no evidence of infectious process, negative urine hCG urine drug screen was positive for marijuana. Patient was provided IV fluid hydration in the emergency department. She has been feeling better. She will be discharged home. She is understanding agreeable with plan. Patient stable at time of discharge. Case discussed with Dr. June Undiagnosed new problem with uncertain prognosis? @ -No Drug Therapy requiring intensive monitoring for toxicity (Heparin, Nitro, Insulin, Cardizem)? @ -No Were any procedures done? @ -No Diagnosis/symptom? @ -nausea and vomiting, dizziness Acute, or Chronic, or Acute on Chronic? @ -acute Uncomplicated (without systemic symptoms) or Complicated (systemic symptoms)? @ -uncomplicated Side effects of treatment? @ -No Exacerbation, Progression, or Severe Exacerbation? @ -No Poses a threat to life or bodily function? How? (Chest pain, USA, [place], pneumonia, PE, COPD, DKA, ARF, appy, cholecystitis, CVA, Diverticulitis, Homicidal, Suicidal, threat to staff... and all critical care pts) @ -No - Lab Data Result diagrams: 05/23/25 18:44 05/23/25 18:44 Lab Results 05/23/25 05/23/25 05/23/25 Range/Units 18:44 18:44 20:04 WBC 9.64 (4.50-10.00) 10*3/uL RBC 4.47 (4.10-5.20) 10*6/uL Hgb 13.9 (12.0-15.0) g/dL Hct 39.9 (37.2-46.3) % MCV 89.3 (80.0-97.0) fL MCH 31.1 (27.0-32.0) pg MCHC 34.8 (32.0-37.0) g/dL Plt Count 260 (140-440) 10*3/uL MPV 10.0 (9.5-12.2) fL Immature Gran % (Auto) 0.2 % Neutrophils % 58.6 % Lymphocytes % 32.5 % Monocytes % 4.4 % Eosinophils % 3.9 % Basophils % 0.4 % Immature Gran # 0.02 (0.00-0.04) 10*3/uL Neutrophils # 5.65 (1.80-7.70) 10*3/uL Lymphocytes # 3.13 (0.90-5.00) 10*3/uL Monocytes # 0.42 (0.20-1.00) 10*3/uL Eosinophils # 0.38 H (0.04-0.35) 10*3/uL Basophils # 0.04 (0.00-0.10) 10*3/uL Manual Slide Review Performed RBC Morphology Normal PT 11.5 (10.0-12.5) sec INR 1.0 (<1.2) APTT 22.2 (22.0-30.0) sec Sodium 141 (137-145) mmol/L Potassium 4.8 (3.5-5.1) mmol/L Chloride 110 H (98-107) mmol/L Carbon Dioxide 21 L (22-30) mmol/L Anion Gap 10 mmol/L BUN 17 (7-17) mg/dL Creatinine 0.97 (0.52-1.04) mg/dL Est GFR (CKD-EPI)AfAm >90 (>60 ml/min/1.73 sqM) Est GFR (CKD-EPI)NonAf 81 (>60 ml/min/1.73 sqM) Glucose 100 H (74-99) mg/dL Calcium 9.1 (8.4-10.2) mg/dL Total Bilirubin 0.7 (0.2-1.3) mg/dL AST 28 (14-36) U/L ALT 13 (4-34) U/L Alkaline Phosphatase 61 (38-126) U/L Total Protein 6.9 (6.3-8.2) g/dL Albumin 4.2 (3.5-5.0) g/dL Urine Color Urine Appearance (Clear) Urine pH (5.0-8.0) Ur Specific [place] (1.001-1.035) Urine Protein (Negative) Urine Glucose (UA) (Negative) Urine Ketones (Negative) Urine Blood (Negative) Urine Nitrite (Negative) Urine Bilirubin (Negative) Urine Urobilinogen (<2.0) mg/dL Ur Leukocyte Esterase (Negative) Urine HCG, Qual (Not Detectd) Urine Opiates Screen (NotDetected) Ur Oxycodone Screen (NotDetected) Urine Methadone Screen (NotDetected) Ur Barbiturates Screen (NotDetected) U Tricyclic Antidepress (NotDetected) Ur Phencyclidine Scrn (NotDetected) Ur Amphetamines Screen (NotDetected) U Methamphetamines Scrn (NotDetected) U Benzodiazepines Scrn (NotDetected) Urine Cocaine Screen (NotDetected) U Marijuana (THC) Screen (NotDetected) 06/29/25 06/29/25 Range/Units 20:27 20:27 WBC (4.50-10.00) 10*3/uL RBC (4.10-5.20) 10*6/uL Hgb (12.0-15.0) g/dL Hct (37.2-46.3) % MCV (80.0-97.0) fL MCH (27.0-32.0) pg MCHC (32.0-37.0) g/dL Plt Count (140-440) 10*3/uL MPV (9.5-12.2) fL Immature Gran % (Auto) % Neutrophils % % Lymphocytes % % Monocytes % % Eosinophils % % Basophils % % Immature Gran # (0.00-0.04) 10*3/uL Neutrophils # (1.80-7.70) 10*3/uL Lymphocytes # (0.90-5.00) 10*3/uL Monocytes # (0.20-1.00) 10*3/uL Eosinophils # (0.04-0.35) 10*3/uL Basophils # (0.00-0.10) 10*3/uL Manual Slide Review RBC Morphology PT (10.0-12.5) sec INR (<1.2) APTT (22.0-30.0) sec Sodium (137-145) mmol/L Potassium (3.5-5.1) mmol/L Chloride (98-107) mmol/L Carbon Dioxide (22-30) mmol/L Anion Gap mmol/L BUN (7-17) mg/dL Creatinine (0.52-1.04) mg/dL Est GFR (CKD-EPI)AfAm (>60 ml/min/1.73 sqM) Est GFR (CKD-EPI)NonAf (>60 ml/min/1.73 sqM) Glucose (74-99) mg/dL Calcium (8.4-10.2) mg/dL Total Bilirubin (0.2-1.3) mg/dL AST (14-36) U/L ALT (4-34) U/L Alkaline Phosphatase (38-126) U/L Total Protein (6.3-8.2) g/dL Albumin (3.5-5.0) g/dL Urine Color Yellow Urine Appearance Clear (Clear) Urine pH 7.5 (5.0-8.0) Ur Specific [place] 1.026 (1.001-1.035) Urine Protein Trace H (Negative) Urine Glucose (UA) Negative (Negative) Urine Ketones 1+ H (Negative) Urine Blood Negative (Negative) Urine Nitrite Negative (Negative) Urine Bilirubin Negative (Negative) Urine Urobilinogen <2.0 (<2.0) mg/dL Ur Leukocyte Esterase Negative (Negative) Urine HCG, Qual Not Detected (Not Detectd) Urine Opiates Screen Not Detected (NotDetected) Ur Oxycodone Screen Not Detected (NotDetected) Urine Methadone Screen Not Detected (NotDetected) Ur Barbiturates Screen Not Detected (NotDetected) U Tricyclic Antidepress Not Detected (NotDetected) Ur Phencyclidine Scrn Not Detected (NotDetected) Ur Amphetamines Screen Not Detected (NotDetected) U Methamphetamines Scrn Not Detected (NotDetected) U Benzodiazepines Scrn Not Detected (NotDetected) Urine Cocaine Screen Not Detected (NotDetected) U Marijuana (THC) Screen Detected H (NotDetected) Disposition Clinical Impression: Dehydration, Lightheadedness, Nausea and vomiting Disposition: HOME SELF-CARE Condition: Stable Instructions (If sedation given, give patient instructions): Acute Nausea and Vomiting (ED) Additional Instructions: Please follow up with your doctor. Return to the emergency department for new or worsening symptoms. Is patient prescribed a controlled substance at d/c from ED?: No Referrals: None,Stated [REFERRING] - 1-2 days
[2025-05-23 19:04] LABS: Basophils # (A) 0.04 10*3/uL (0.00-0.10); Basophils % (A) 0.4 %; Eosinophils # (A) 0.38 10*3/uL (0.04-0.35); Eosinophils % (A) 3.9 %; HCT 39.9 % (37.2-46.3); HGB 13.9 g/dL (12.0-15.0); Lymphocytes # (A) 3.13 10*3/uL (0.90-5.00); Lymphocytes % (A) 32.5 %; MCH 31.1 pg (27.0-32.0); MCHC 34.8 g/dL (32.0-37.0); MCV 89.3 fL (80.0-97.0); Monocytes # (A) 0.42 10*3/uL (0.20-1.00); Monocytes % (A) 4.4 %; Neutrophils # (A) 5.65 10*3/uL (1.80-7.70); Neutrophils % (A) 58.6 %; RBC 4.47 10*6/uL (4.10-5.20); RDW 12.4 % (11.5-14.5); WBC 9.64 10*3/uL (4.50-10.00)
[2025-05-23 19:15] LABS: ALT 13 U/L (4-34); African American GFR (CKD) >90 (>60 ml/min/1.73 sqM); Anion Gap 10 mmol/L; Blood Urea Nitrogen 17 mg/dL (7-17); Calcium 9.1 mg/dL (8.4-10.2); Carbon Dioxide 21 mmol/L (22-30); Chloride 110 mmol/L (98-107); Glucose 100 mg/dL (74-99); Non-African American GFR(CKD) 81 (>60 ml/min/1.73 sqM); Sodium 141 mmol/L (137-145)
[2025-05-23 19:17] LABS: AST 28 U/L (14-36); Albumin 4.2 g/dL (3.5-5.0); Alkaline Phosphatase 61 U/L (38-126); Potassium 4.8 mmol/L (3.5-5.1); Total Bilirubin 0.7 mg/dL (0.2-1.3); Total Protein 6.9 g/dL (6.3-8.2)
[2025-05-23] MEDS: SODIUM CHLORIDE 0.9% 1,000 ML IV ONE (19:19)
[2025-05-23] MEDS: SODIUM CHLORIDE 0.9% 500 ML 500 ML IV ONE (19:20)
[2025-05-23 19:28] LABS: Platelet Count 260 10*3/uL (140-440)
[2025-05-23 19:29] LABS: RBC Morphology Normal
[2025-05-23 20:39] LABS: Appearance,Urine Clear (Clear); Bilirubin,Urine Negative (Negative); Blood,Urine Negative (Negative); Color,Urine Yellow; Glucose,Urine (UA) Negative (Negative); Ketones,Urine 1+ (Negative); Leukocyte Esterase,Urine Negative (Negative); Nitrite,Urine Negative (Negative); PH, Urine 7.5 (5.0-8.0); Protein,Urine Trace (Negative); Specific Gravity,Urine 1.026 (1.001-1.035); Urobilinogen,Urine <2.0 mg/dL (<2.0)
[2025-05-23 20:47] LABS: Partial Thromboplastin Time 22.2 sec (22.0-30.0); Prothrombin Time 11.5 sec (10.0-12.5)
[2025-05-23 21:02] LABS: Amphetamine Screen,Urine Not Detected (NotDetected); Barbiturate Screen,Urine Not Detected (NotDetected); Benzodiazepines Screen,Urine Not Detected (NotDetected); Cocaine Screen,Urine Not Detected (NotDetected); Methadone Screen, Urine Not Detected (NotDetected); Opiate Screen,Urine Not Detected (NotDetected); Oxycodone Screen, Urine Not Detected (NotDetected); Phencyclidine Screen,Urine Not Detected (NotDetected); Tricyclic Antidepressant,Urine Not Detected (NotDetected); Urn Cannabinoid Scrn Detected (NotDetected)
[2025-05-23] MEDS: ONDANSETRON 4 MG ODT STARTER PACK 2 TAB BTL PO STA (21:55)
[2025-05-23 22:00] VITALS: BP 110/80; PULSE 78; RESP 19; TEMP 98.2
[2025-05-24 13:54] LABS: C. trachomatis,PCR Negative (Negative); N. gonorrhoeae,PCR Negative (Negative)
== END 2025-05-23 22:00 | disposition home or self-care (01) ==
LOC: EC 18:23
DX: E86.0 Dehydration (principal); R42 Dizziness and giddiness; R11.2 Nausea with vomiting, unspecified; F17.290 Nicotine dependence, other tobacco product, uncomplicated
CPT/HCPCS: 36415; 93005; 80053; 85025; 85610; 85730; 81003; 81025; 87491; 87591; 80306; 99284; 96360; S0119

== ENCOUNTER 2025-06-04 17:38 | Emergency (ER) | payer OTHER ==
--- NOTE | 2025-06-04 18:10 | ED ---
General Adult HPI - General Chief complaint: Fall Stated complaint: Fall, left foot injury Time Seen by Provider: 06/04/25 17:54 Source: patient, RN notes reviewed Mode of arrival: ambulatory Limitations: no limitations - History of Present Illness Initial comments: 30-year-old female presents to the emergency department for left foot injury. Patient states that 3-4 days ago she tripped on the stairs. She notes that she plantarflexed her foot and since then has had pain in the medial midfoot. She states that she has been ambulating on it but it is painful. She denies any other significant injury. Denies head injury. Denies blood thinners. Denies any loss of consciousness. - Related Data Previous Rx's Medication Instructions Recorded Melatonin 5 mg PO HS 30 Days #30 tab 10/13/24 Nicotine 14Mg/24Hr Patch [Habitrol] 1 patch TRANSDERM DAILY patch 10/13/24 Nicotine Gum (Polacrilex) 2 mg BUCCAL Q4HR PRN pieceofgum 10/13/24 [Nicorette] hydrOXYzine pamoate [Vistaril] 25 mg PO Q6HR PRN 30 Days #90 cap 10/13/24 lamoTRIgine [LaMICtal] 25 mg PO DAILY 30 Days #30 tab 10/13/24 Allergies Allergy/AdvReac Type Severity Reaction Status Date / Time codeine AdvReac Rash/Hives Verified 06/04/25 17:47 methylprednisolone AdvReac Rash/Hives Verified 06/04/25 17:47 [From Solu-Medrol] Review of Systems ROS Statement: Those systems with pertinent positive or pertinent negative responses have been documented in the HPI. ROS Other: All systems not noted in ROS Statement are negative. Past Medical History Past Medical History: Asthma, GERD/Reflux Additional Past Medical History / Comment(s): IBS History of Any Multi-Drug Resistant Organisms: None Reported Past Surgical History: No Surgical Hx Reported Past Anesthesia/Blood Transfusion Reactions: No Reported Reaction Past Psychological History: Anxiety Smoking Status: Vaper Past Alcohol Use History: Rare Past Drug Use History: Marijuana General Exam Limitations: no limitations General appearance: alert, in no apparent distress Head exam: Present: atraumatic, normocephalic, normal inspection Respiratory exam: Present: normal lung sounds bilaterally. Absent: respiratory distress, wheezes, rales, rhonchi, stridor Cardiovascular Exam: Present: regular rate, normal rhythm, normal heart sounds. Absent: systolic murmur, diastolic murmur, rubs, gallop, clicks GI/Abdominal exam: Present: soft. Absent: distended Extremities exam: Present: full ROM, tenderness, normal capillary refill, other (DP and PT pulses 2+ bilaterally, swelling over the left mid foot). Absent: pedal edema, joint swelling, calf tenderness Neurological exam: Present: alert, oriented X3 Psychiatric exam: Present: normal affect, normal mood Skin exam: Present: warm, dry, intact, normal color Course Vital Signs 06/04/25 17:44 Temperature 98 F Pulse Rate 65 Respiratory 12 Rate Blood Pressure 104/78 O2 Sat by Pulse 95 Oximetry Medical Decision Making - Medical Decision Making Was pt. sent in by a medical professional or institution ([place], [facility], urgent care, hospital, or usp...) When possible be specific @ -[No] Did you speak to anyone other than the patient for history (EMS, parent, family, police, friend...)? What history was obtained from this source @ -[No] Did you review nursing and triage notes (agree or disagree)? Why? @ -[I reviewed and agree with nursing and triage notes] Were old charts reviewed (outside hosp., previous admission, EMS record, old EKG, old radiological studies, urgent care reports/EKG's, usp records)? Report findings @ -[No old charts were reviewed] Differential Diagnosis (chest pain, altered mental status, abdominal pain women, abdominal pain men, vaginal bleeding, weakness, fever, dyspnea, syncope, headache, dizziness, GI bleed, back pain, seizure, CVA, palpatations, mental health, musculoskeletal)? @ -Differential Musculoskeletal Muscular strain, contusion, ligament sprain, fracture, arthritis, septic arthritis, bursitis, cellulitis, muscle spasm, nerve compression, DVT, arterial occlusion, herpes zoster, electrolyte abnormality, tumor.... This is not meant to be in all inclusive list EKG interpreted by me (3pts min.). @ -None X-rays interpreted by me (1pt min.). @ -X-ray of the left foot reveals CT interpreted by me (1pt min.). @ -[None done] U/S interpreted by me (1pt. min.). @ -[None done] What testing was considered but not performed or refused? (CT, X-rays, U/S, labs)? Why? @ -[None] What meds were considered but not given or refused? Why? @ -[None] Did you discuss the management of the patient with other professionals (professionals i.e. , PA, [place], lab, RT, psych nurse, criminal justice social worker, dramatic director, teacher, commercial account officer, window caser)? Give summary @ -[No] Was smoking cessation discussed for >3mins.? @ -[No] Was critical care preformed (if so, how long)? @ -[No] Were there social determinants of health that impacted care today? How? (Homelessness, low income, unemployed, alcoholism, drug addiction, transporta tion, low edu. Level, literacy, decrease access to med. care, long term, rehab)? @ -[No] Was there de-escalation of care discussed even if they declined (Discuss DNR or withdrawal of care, Hospice)? DNR status @ -[No] What co-morbidities impacted this encounter? (DM, HTN, Smoking, COPD, CAD, Cancer, CVA, ARF, Chemo, Hep., AIDS, mental health diagnosis, sleep apnea, morbid obesity)? @ -[None] Was patient admitted / discharged? Hospital course, mention meds given and route, prescriptions, significant lab abnormalities, going to OR and other pertinent info. @ -[hospital course] Undiagnosed new problem with uncertain prognosis? @ -[No] Drug Therapy requiring intensive monitoring for toxicity (Heparin, Nitro, Insulin, Cardizem)? @ -[No] Were any procedures done? @ -[No] Diagnosis/symptom? @ -[default] Acute, or Chronic, or Acute on Chronic? @ -[default] Uncomplicated (without systemic symptoms) or Complicated (systemic symptoms)? @ -[default] Side effects of treatment? @ -[No] Exacerbation, Progression, or Severe Exacerbation? @ -[No] Poses a threat to life or bodily function? How? (Chest pain, [place], [place], pneumonia, PE, COPD, DKA, ARF, appy, cholecystitis, CVA, Diverticulitis, Homicidal, Suicidal, threat to staff... and all critical care pts) @ -[No] Disposition Clinical Impression: Lisfranc's sprain, Foot fracture Disposition: HOME SELF-CARE Condition: Stable Instructions (If sedation given, give patient instructions): Foot Fracture in Adults (ED) Additional Instructions: Please follow-up with orthopedics. Return to the emergency department for new or worsening symptoms. Is patient prescribed a controlled substance at d/c from ED?: No Referrals: Tyrel Eric MD [Primary Care Provider] - 1-2 days Theo Sy MD [Medical Doctor] - 1-2 days
--- NOTE | 2025-06-04 19:30 | XR ---
EXAMINATION TYPE: XR tibia fibula LT, XR foot complete LT DATE OF EXAM: 06/04/2025 6:34 PM CLINICAL INDICATION:Female, 30 years old with history of fall; PHH, pain COMPARISON: None TECHNIQUE: XR tibia fibula LT, XR foot complete LT; tibia/fibula was examined in AP and lateral proje ctions. The left foot was examined in AP, oblique and lateral projections. FINDINGS: There is mild diastases suggested between the first and second metatarsals of the left foot. Addition ally there is abnormal-appearing overlap of the midfoot bones of the left foot. There is mild soft ti ssue edema involving the dorsum of the left foot. No acute fracture is seen. The left fibula and tib ia are intact. No radiopaque foreign bodies. IMPRESSION: No evidence of acute fracture. Mild diastases between the first and second metatarsals of the left foot and abnormal appearing overl ap of the midfoot bones raises concern for Lisfranc injury versus positional abnormality from radiogr aphic technique. This can be further characterized with MRI foot to better delineate any underlying a bnormality. [facility], , 06/04/2025 7:28 PM
[2025-06-04] MEDS: traMADol 50 MG STARTER PACK 3 TAB BTL PO STA (20:18)
[2025-06-04 20:26] VITALS: BP 113/76; PULSE 75; RESP 16; TEMP 98.6
== END 2025-06-04 20:21 | disposition home or self-care (01) ==
LOC: EC 17:38
DX: S93.302A Unspecified subluxation of left foot, initial encounter (principal); F17.290 Nicotine dependence, other tobacco product, uncomplicated; Z88.5 Allergy status to narcotic agent; Z88.8 Allergy status to other drugs, medicaments and biological substances; W01.0XXA Fall on same level from slipping, tripping and stumbling without subsequent striking against object, initial encounter
CPT/HCPCS: 99283